=== PATIENT | female | born 1960 | race Caucasian/White ===

== ENCOUNTER 2016-10-04 14:57 | Emergency (ER) | payer BC, OTHER, SELFPAY ==
--- NOTE | 2016-10-04 15:07 | EDM.PDOC ---
ED HPI Skin/Rash - General Chief Complaint: Skin Complaint Stated Complaint: PT WOULD LIKE TO GET CHECK Time Seen by Provider: 10/04/16 15:07 Source: Reports: Patient, Provider History Limitations: Reports: No limitations - History of Present Illness INITIAL COMMENTS - FREE TEXT/NARRATIVE: HISTORY AND PHYSICAL: [55-year-old female presenting with right breast pain and axilla pain.] History of Present Illness: [The patient had breast cancer she underwent mastectomy on the right lymph node resection and then had an infection. 10 days ago patient had second surgical seizure on right breast re\re with resection. SALLY drain has placed at that time. She did report no drainage X 3 and no in the ryan LH I will days. pain has increased. Call was received from Ana Sexton MANAGER OF MEDICAL regarding patient's condition. Patient received her surgery at [facility]. Her surgeon is not in today so an associate had recommended that she have a CT scan & pull the drain. ] Original surgery was September 06 [place], [place] and second surgery was September 24, 2016 in [place], [place] Review of Systems: As per history of present illness and below otherwise all systems reviewed and negative. Past medical history: As per history of present illness and as reviewed below otherwise noncontributory. Surgical history: As per history of present illness and as reviewed below otherwise noncontributory. Social history: No reported history of drug or alcohol abuse. Family history: As per history of present illness and as reviewed below otherwise noncontributory. Physical exam: Alert female who is anxious. Answering questions appropriately. HEENT: Atraumatic, normocehpalic, pupils reactive, negative for conjunctival pallor or scleral icterus, mucous membranes moist, throat clear, neck supple, nontender, trachea midline. Lungs: Clear to auscultation, breath sounds equal bilaterally, chest non tender. Heart: S1S2, regular, negative for clicks, rubs, or JVD. Right breast is surgically absent. Sutures are in place. Significant edema noted to the right axilla. Exquisite tenderness is noted with palpation. Mild heat radiating to the axilla. Abdomen: Soft, nondistended, nontender. Negative for masses or hepatossplenmegaly. Negative for costovertebral tenderness. Pelvis: Stable nontender. Genitourinary: Deferred. Rectal: Deferred Extremities: Atraumatic, negative for cords or calf pain. Neurovascular unremarkable. Neuro: Awake, alert, oriented. Cranial nerves II through XII unremarkable. Cerebellum unremarkable. Motor and sensory unremarkable throughout. Exam nonfocal. Discussion with Dr. Hendrix Plastic Surgeon in [facility] . Recommendation from Dr. Hendrix was in agreement for clindamycin 2 mg IV. Patient could be discharged with oral antibiotics of clindamycin and Keflex. Should worsening of her symptoms occur she will need to return for further antibiotic IV therapy. Keep her appointment with her surgeon Dr. Bales in 2 days as scheduled. Clinic phone number [phone]. freight caller number for Dr. Hendrix [phone]- [phone]. Diagnostics: [CBC CMP CT chest with contrast] Therapeutics: [Tylenol, toradal clindamycin IV] Impression: [Cellulitis] Plan: [Home 2 need to consume fluids Tylenol for discomfort Clindamycin/and Keflex oral antibiotics] Definitive disposition and diagnosis as appropriate pending reevaluation and review of above. Timing: Reports: worse Location, Skin: Reports: chest Quality: Reports: Ache Severity: moderate Known Identified Source: yes Place of Occurrence: home - Related Data Allergies Allergy/AdvReac Type Severity Reaction Status Date / Time codeine Allergy Vomiting Verified 10/04/16 15:10 Home Meds: Ambulatory Orders Medication Instructions Recorded Confirmed Aspirin [[place] Aspirin] 81 mg PO DAILY 05/03/15 05/05/15 Canagliflozin [Invokana] 1 tab PO DAILY 05/03/15 05/05/15 Cranberry Conc/C/Bacill Coag 1 tab PO DAILY 05/03/15 05/05/15 [Cranberry Tablet] Corina 1 tab PO DAILY 05/03/15 05/05/15 Iron,Carbonyl/Vit C/Vit B12/Fa 1 tab PO DAILY 05/03/15 05/05/15 [Iron 100 Plus Tablet] Levothyroxine Sodium [Synthroid] 125 mcg PO DAILY 05/03/15 05/05/15 Multivits,Ca,Minerals/Iron/FA 1 tab PO ACBREAKFAST 05/03/15 05/05/15 [Women's Daily Formula Caplet] Mv-Mn/FA/Vit K/Lycop/Lut/Zeaxa 1 tab PO DAILY 05/03/15 05/05/15 [Ocuvite Eye + Multi Tablet] [place]-3/DHA/Epa/Fish Oil [[place]-3 1,000 mg PO DAILY 05/03/15 05/05/15 Fish Oil Softgel] SitaGLIPtin [Januvia] 1 tab PO DAILY 05/03/15 05/05/15 Terbinafine HCl 250 mg PO DAILY 05/03/15 05/05/15 Vitamin B Complex [B Complex] 1 tab PO DAILY 05/03/15 05/05/15 atorvaSTATin Calcium [Atorvastatin 40 mg PO DAILY 05/03/15 05/05/15 Calcium] Ascorbic Acid/Collagen Hydr 1 tab PO DAILY 05/05/15 05/05/15 [Collagen Plus Vit C] Canagliflozin [Invokana] 100 mg PO DAILY 06/12/15 06/14/15 Levothyroxine Sodium [Synthroid] 125 mcg PO DAILY 06/12/15 06/14/15 [place]-3 Fatty Acids [[place]-3] 1,000 mg PO DAILY 06/12/15 06/14/15 SitaGLIPtin [Januvia] 100 mg PO DAILY 06/12/15 06/14/15 Terbinafine HCl [Terbinafine] 250 mg PO DAILY 06/12/15 06/14/15 atorvaSTATin Calcium [Atorvastatin 40 mg PO DAILY 06/12/15 06/14/15 Calcium] Cephalexin [Keflex] 500 mg PO Q6HR #28 cap 10/04/16 Clindamycin HCl [Cleocin HCl] 300 mg PO Q8HR #21 capsule 10/04/16 Past Medical History Other HEENT History: Some diminished hearing bilaterally Other Cardiovascular History: states had hx of mumur as a child Other Gastrointestinal History: occasional heartburn Other Genitourinary History: hx: kidney stones in past...none for years always passed them Other OB/BYN History: Possible history uterine fibroid Other Musculoskeletal History: Arthritis to hands Other Endocrine/Metabolic History: Hypothyroidism Other Hematologic History: Blood transfusion at time of treatment with Dr. Giron for uterine bleeding (unsure of surgery performed) Oncologic (Cancer) History: Reports: Breast Other Oncologic History: Area excised 20 yrs ago below Right eye Other Dermatologic History: Excision of Cancer Below Right eye 20 yrs ago - Past Surgical History Other Female Surgeries/Procedures: hx hysteroscopy with polypectomy Oncologic Surgical History: Reports: Biopsy of breast, Lumpectomy Social & Family History - Tobacco Use Smoking Status *Q: Never Smoker - Recreational Drug Use Recreational Drug Use: No Drug Use in Last 12 Months: No ED ROS GENERAL - Review of Systems Review Of Systems: ROS reveals no pertinent complaints other than HPI. ED EXAM, SKIN/RASH Exam: See Below (See dictation) Course - Vital Signs Last Recorded V/S: Last Vital Signs Temp 37.8 C 10/04/16 15:11 Pulse 88 10/04/16 15:11 Resp 18 10/04/16 15:11 BP 129/61 10/04/16 15:11 Pulse Ox 94 L 10/04/16 15:11 - Orders/Labs/Meds Orders: Active Orders 24 hr Category Date Time Status Chest w Cont [CT] Stat Exams 10/04/16 15:15 Taken CULTURE BLOOD [BC] Stat Lab 10/04/16 18:47 Ordered CULTURE BLOOD [BC] Stat Lab 10/04/16 18:47 Ordered Sodium Chloride 0.9% [Saline Flush] Med 10/04/16 15:25 Active 10 ml FLUSH ASDIRECTED PRN Sodium Chloride 0.9% [Saline Flush] Med 10/04/16 15:25 Active 2.5 ml FLUSH ASDIRECTED PRN Blood Culture x2 Reflex Set [OM.PC] Stat Oth 10/04/16 18:47 Ordered Saline Lock Insert [OM.PC] Stat Oth 10/04/16 15:25 Ordered Medication Orders Sodium Chloride (Saline Flush) 10 ml FLUSH ASDIRECTED PRN PRN Reason: Keep Vein Open Last Admin: 10/04/16 17:16 Dose: 10 ml Sodium Chloride (Saline Flush) 2.5 ml FLUSH ASDIRECTED PRN PRN Reason: Keep Vein Open Last Admin: 10/04/16 17:16 Dose: 2.5 ml Labs: Laboratory Tests 10/04/16 10/04/16 Range/Units 15:40 15:40 WBC 15.67 H (4.0-11.0) K/uL RBC 4.74 (4.30-5.90) M/uL Hgb 12.6 (12.0-16.0) g/dL Hct 39.9 (36.0-46.0) % MCV 84.2 (80.0-98.0) fL MCH 26.6 L (27.0-32.0) pg MCHC 31.6 (31.0-37.0) g/dL RDW Std Deviation 43.0 (28.0-62.0) fl RDW Coeff of César 14 (11.0-15.0) % Plt Count 319 (150-400) K/uL MPV 9.30 (7.40-12.00) fL Neut % (Auto) 89.2 H (48.0-80.0) % Lymph % (Auto) 5.3 L (16.0-40.0) % Levy % (Auto) 4.9 (0.0-15.0) % Eos % (Auto) 0.5 (0.0-7.0) % Baso % (Auto) 0.1 (0.0-1.5) % Neut # 14.0 H (1.4-5.7) K/uL Lymph # 0.8 (0.6-2.4) K/uL Levy # 0.8 (0.0-0.8) K/uL Eos # 0.1 (0.0-0.7) K/uL Baso # 0.0 (0.0-0.1) K/uL Nucleated RBC % 0.0 /100WBC Nucleated RBCs # 0 K/uL Sodium 134 L (136-146) mmol/L Potassium 3.8 (3.5-5.1) mmol/L Chloride 98 (98-110) mmol/L Carbon Dioxide 26 (21-31) mmol/L BUN 18 (6.0-23.0) mg/dL Creatinine 0.9 (0.6-1.5) mg/dL Est Cr Clr Drug Dosing 57.05 mL/min Estimated GFR (MDRD) > 60.0 ml/min Glucose 152 H (60-110) mg/dL Calcium 8.8 (8.8-10.8) mg/dL Total Bilirubin 0.7 (0.1-1.5) mg/dL AST 14 (5-40) IU/L ALT 17 (8-54) IU/L Alkaline Phosphatase 76 (40-150) Total Protein 7.0 (6.0-8.0) g/dL Albumin 3.3 L (3.5-5.0) g/dL Globulin 3.7 H (2.0-3.5) g/dL Albumin/Globulin Ratio 0.9 L (1.3-2.8) Meds: Medications Generic Name Dose Route Start Last Admin Trade Name Estevanq PRN Reason Stop Dose Admin Sodium Chloride 10 ml 10/04/16 15:25 10/04/16 17:16 Saline Flush FLUSH 10 ml ASDIRECTED PRN Administration Keep Vein Open Sodium Chloride 2.5 ml 10/04/16 15:25 10/04/16 17:16 Saline Flush FLUSH 2.5 ml ASDIRECTED PRN Administration Keep Vein Open Discontinued Medications Generic Name Dose Route Start Last Admin Trade Name Javier PRN Reason Stop Dose Admin Acetaminophen 650 mg 10/04/16 18:07 10/04/16 18:15 Tylenol PO 10/04/16 18:08 650 mg NOW ONE Administration Clindamycin Phosphate 300 mg/ 52 mls @ 100 mls/hr 10/04/16 18:48 Sodium Chloride IV 10/04/16 19:19 ONETIME ONE Iopamidol 75 ml 10/04/16 18:03 10/04/16 18:03 Isovue-370 (76%) IVPUSH 10/04/16 18:04 75 ml ONETIME STA Administration Ketorolac Tromethamine 30 mg 10/04/16 18:05 10/04/16 18:17 Toradol IVPUSH 10/04/16 18:06 30 mg ONETIME ONE Administration Ondansetron HCl 4 mg 10/04/16 18:06 10/04/16 18:15 Zofran IVPUSH 10/04/16 18:07 4 mg ONETIME ONE Administration Departure - Departure Time of Disposition: 19:45 Disposition: Home, Self-Care 01 Condition: good Clinical Impression: Cellulitis Qualifiers: Site of cellulitis: trunk Site of cellulitis of trunk: chest wall Qualified Code(s): L03.313 - Cellulitis of chest wall Prescriptions: Cephalexin [Keflex] 500 mg PO Q6HR #28 cap Clindamycin HCl [Cleocin HCl] 300 mg PO Q8HR #21 capsule Forms: ED Department Discharge Additional Instructions: The following information is given to patients seen in the emergency department who are being discharged to home. This information is to outline your options for follow-up care. We provide all patients seen in our emergency department with a follow-up referral. The need for follow-up, as well as the timing and circumstances, are variable depending upon the specifics of your emergency department visit. If you don't have a primary care physician on staff, we will provide you with a referral. We always advise you to contact your personal physician following an emergency department visit to inform them of the circumstance of the visit and for follow-up with them and/or the need for any referrals to a consulting specialist. The emergency department will also refer you to a specialist when appropriate. This referral assures that you have the opportunity for followup care with a specialist. All of these measure are taken in an effort to provide you with optimal care, which includes your followup. Under all circumstances we always encourage you to contact your private physician who remains a resource for coordinating your care. When calling for followup care, please make the office aware that this follow-up is from your recent emergency room visit. If for any reason you are refused follow-up, please contact the [facility] emergency department at and asked to speak to the emergency department charge nurse. Soft tissue infection is what appears to be your difficulty Tylenol for discomfort Discussion with your Lasix surgeon in [place], [place] revealed that you will be placed on clindamycin and oral antibiotics and Keflex oral antibiotic Keep your appointment on Friday, 2 days from now, with your plastic surgeon Dr. Bales. Should your symptoms worsen please return for reevaluation possibly more IV antibiotics - My Orders Last 24 Hours: My Active Orders 10/04/16 15:15 Chest w Cont [CT] Stat 10/04/16 15:25 Sodium Chloride 0.9% [Saline Flush] 10 ml FLUSH ASDIRECTED PRN Sodium Chloride 0.9% [Saline Flush] 2.5 ml FLUSH ASDIRECTED PRN Saline Lock Insert [OM.PC] Stat 10/04/16 18:47 CULTURE BLOOD [BC] Stat CULTURE BLOOD [BC] Stat Blood Culture x2 Reflex Set [OM.PC] Stat - Assessment/Plan Last 24 Hours: My Active Orders 10/04/16 15:15 Chest w Cont [CT] Stat 10/04/16 15:25 Sodium Chloride 0.9% [Saline Flush] 10 ml FLUSH ASDIRECTED PRN Sodium Chloride 0.9% [Saline Flush] 2.5 ml FLUSH ASDIRECTED PRN Saline Lock Insert [OM.PC] Stat 10/04/16 18:47 CULTURE BLOOD [BC] Stat CULTURE BLOOD [BC] Stat Blood Culture x2 Reflex Set [OM.PC] Stat
[2016-10-04] MEDS ORDERED: Sodium Chloride 0.9% 2.5 ML Syringe FLUSH PRN (15:25)
[2016-10-04] MEDS ORDERED: Sodium Chloride 0.9% 10 ML Syringe FLUSH PRN (15:25)
[2016-10-04 16:41] LABS: CHLORIDE,CL 98 mmol/L (98-110); SODIUM,NA 134 mmol/L (136-146)
[2016-10-04] MEDS ORDERED: Iopamidol 755 Mg/ML 100 ML Bottle IVPUSH STA (18:03)
[2016-10-04] MEDS ORDERED: Ketorolac 30 MG/ML SDV IVPUSH ONE (18:05)
[2016-10-04] MEDS ORDERED: Ondansetron 4 MG/2 ML SDV IVPUSH ONE (18:06)
[2016-10-04] MEDS ORDERED: Acetaminophen 325 MG Tab PO ONE (18:07)
[2016-10-04] MEDS ORDERED: Cephalexin 500 MG Cap PO ONE (19:50)
[2016-10-04] MEDS ORDERED: Clindamycin Phosphate in D5W 300 MG in Premix Bag 1 BAG IV STA ×2 (19:57)
[2016-10-04 20:21] VITALS: BP 115/53
--- NOTE | 2016-10-07 12:41 | CT ---
EXAM DATE: 10/04/16 PATIENT'S AGE: 55 Patient: ESA CHAPIN Facility: [place], [place] Site . Site : 1960 Study: CT Chest W CONT [id number]/[id number] 5:50:21 PM Ordering Physician: Doctor Morley Final Report: INDICATION: Right breast pain and vomiting. Status post right mastectomy 10 days prior with a 2nd surgery for infection. TECHNIQUE: CT chest was acquired with IV contrast. 75 cc Isovue 370 COMPARISON: 09/08/2015 FINDINGS: Cardiovascular structures: Heart size is normal. Thoracic aorta and main pulmonary artery are normal in caliber. Mediastinum and mariela: Diffusely enlarged thyroid with no diffuse or focal nodules. Lungs: Clear. Pleura and pericardium: No effusions. Chest wall and axilla: The patient is status post right mastectomy. Percutaneous surgical drain identified in a sub right pectoralis location. Postoperative soft tissue changes are noted but no definitive walled-off collections are identified. Punctate focus of air identified. Targeted ultrasound may be helpful to better evaluate if clinically warranted. Bones: No significant findings. Upper abdomen: Unremarkable. IMPRESSION: Patient is status post right mastectomy. Percutaneous surgical drain identified in the sub right pectoralis location. Postoperative surgical changes are noted in the region of the surgical bed. No definitive walled-off collections. Targeted ultrasound may be helpful to better evaluate if clinically warranted. Diffusely enlarged thyroid gland with no focal nodules. Dictated by Ron Plummer MD @ 10/04/2016 6:36:38 PM Dictated by: Ron Plummer MD @ 10/04/2016 18:37:02 (Electronic Signature) Report Signed by Proxy and Original Signed Document filed in the Medical Record. [facility]
== END 2016-10-04 20:40 | disposition home or self-care (01) ==
LOC: MW.ED 14:57
DX: L03.313 Cellulitis of chest wall (principal); Z88.5 Allergy status to narcotic agent; Z79.82 Long term (current) use of aspirin; Z79.899 Other long term (current) drug therapy; Z90.710 Acquired absence of both cervix and uterus; Z90.89 Acquired absence of other organs; Z98.890 Other specified postprocedural states
CPT/HCPCS: 36415; 71260; 80053; 85025; 96365; 96375; 99284; A9270; J1885; J2405; Q9967

== ENCOUNTER 2020-04-12 09:57 | Inpatient (IN) | payer OTHER ==
--- NOTE | 2020-04-12 10:16 | EDM.PDOC ---
ED HPI GENERAL MEDICAL PROBLEM - General Chief Complaint: Gastrointestinal Problem Stated Complaint: nausea vomiting Time Seen by Provider: 04/12/20 10:13 Source of Information: Reports: Patient History Limitations: Reports: No Limitations - History of Present Illness INITIAL COMMENTS - FREE TEXT/NARRATIVE: HISTORY AND PHYSICAL: History of present illness: Patient is a 59-year-old female who presents to the ED today with concern of nausea with occasional vomiting, generalized body aches, headache, and fatigue over the past 9 days. Patient states she was tested for coronavirus last Friday in the clinic and her results were negative. Patient states over the course of the week she is continued to feel tired and rundown. Patient states that she is feeling constantly nauseous and is having a difficult time with eating solid foods but states she has been trying to push fluids. Patient has a history of atrial fibrillation, type 2 diabetes, hypothyroid, and breast cancer but states she has been in remission for several years. Patient denies fever, chills, chest pain, shortness of breath, or cough. Denies neck stiff ness, change in vision, syncope, or near syncope. Denies abdominal pain, diarrhea, constipation, or dysuria. Has not noted any blood in urine or stool. Review of systems: As per history of present illness and below otherwise all systems reviewed and negative. Past medical history: As per history of present illness and as reviewed below otherwise noncontributory. Surgical history: As per history of present illness and as reviewed below otherwise noncontributory. Social history: See social history for further information Family history: As per history of present illness and as reviewed below otherwise noncontributory. Physical exam: General: Patient is alert, oriented, and in no acute distress. Patient sitting comfortably on exam table. HEENT: Atraumatic, normocephalic, pupils equal and reactive bilaterally, negative for conjunctival pallor or scleral icterus, mucous membranes moist, TMs normal bilaterally, throat clear, neck supple, nontender, trachea midline. No drooling or trismus noted. No meningeal signs. No hot potato voice noted. Lungs: Patient speaking clearly without breathlessness, no wheezing or stridor, no accessory muscle use or respiratory distress. Auscultation deferred due to current COV-ID 19 outbreak. Heart: Auscultation deferred due to current COV-ID 19 outbreak. Abdomen: Soft, nondistended, nontender. Negative for masses or hepatosplenomegaly. Negative for costovertebral tenderness. Pelvis: Stable nontender. Genitourinary: Deferred. Rectal: Deferred. Skin: Intact, warm, dry. No lesions or rashes noted. Extremities: Atraumatic, negative for cords or calf pain. Neurovascular unremarkable. Neuro: Awake, alert, oriented. Cranial nerves II through XII unremarkable. Cerebellum unremarkable. Motor and sensory unremarkable throughout. Exam nonfocal. Notes: Upon arrival to the ED, patient's oxygenation saturations were 85%. 2 L nasal cannula were placed on patient and satting 95%. Patient has been breathing comfortably without breathlessness, wheezing, or stridor no use of a sensory muscles or indication of respiratory distress. Incendental findings of imaging discussed with patient and importance to have this followed up with after hospital stay. Called and spoke to Dr. Saunders, hospitalist monogram technician, and will admit to observation telemetry. Voices understanding and is agreeable to plan of care. Denies any further questions or concerns at this time. Diagnostics: EKG, CBC, CMP, UA, chest x-ray, troponin, lipase, COVID-19, ang CT, abd/pelvic CT Therapeutics: NS, zofran, oxygen, Rocephin, Azithromycin Impression: Hypoxia r/o pneumonia Transaminitis Hematuria Plan: Admit to observation to Dr. Saunders on telemetry Definitive disposition and diagnosis as appropriate pending reevaluation and review of above. Abdominal Pain Pain Score (Numeric/FACES): 6 - Related Data Allergies Allergy/AdvReac Type Severity Reaction Status Date / Time codeine Allergy Vomiting Verified 04/12/20 10:34 Home Meds: Home Meds atorvaSTATin Calcium [Atorvastatin Calcium] 40 mg PO DAILY 05/03/15 [History] Empagliflozin [Jardiance] 25 mg PO BEDTIME 04/12/20 [History] Ondansetron [Zofran] 4 mg PO Q4H 04/12/20 [History] Thyroid,Pork [Powderly Thyroid] 90 mg PO ACBREAKFAST 04/12/20 [History] Thyroid,Pork [[employer]ER Thyroid] 30 mg PO ACBREAKFAST 04/12/20 [History] Past Medical History Other HEENT History: Some diminished hearing bilaterally Other Cardiovascular History: states had hx of mumur as a child Other Gastrointestinal History: occasional heartburn Other Genitourinary History: hx: kidney stones in past...none for years always passed them Other HOMEWORKER History: Possible history uterine fibroid Other Musculoskeletal History: Arthritis to hands Other Endocrine/Metabolic History: Hypothyroidism Other Hematologic History: Blood transfusion at time of treatment with Dr. Giron for uterine bleeding (unsure of surgery performed) Oncologic (Cancer) History: Reports: Breast Other Oncologic History: Area excised 20 yrs ago below Right eye Other Dermatologic History: Excision of Cancer Below Right eye 20 yrs ago - Past Surgical History Female Surgical History: Reports: Other (See Below) Oncologic Surgical History: Reports: Biopsy of Breast, Lumpectomy Social & Family History - Family History Family Medical History: Noncontributory ED ROS GENERAL - Review of Systems Review Of Systems: Comprehensive ROS is negative, except as noted in HPI. ED EXAM, GENERAL - Physical Exam Exam: See Below (see dictation) Course - Vital Signs Last Recorded V/S: Last Vital Signs Temp 97.0 F 04/12/20 10:34 Pulse 73 04/12/20 10:34 Resp 20 04/12/20 10:34 BP 127/60 04/12/20 10:34 Pulse Ox 85 L 04/12/20 10:34 - Orders/Labs/Meds Orders: Active Orders 24 hr Category Date Time Status EKG Documentation Completion [RC] STAT Care 04/12/20 10:39 Active Azithromycin [Zithromax] 500 mg Med 04/12/20 14:00 Ordered Sodium Chloride 0.9% [Normal Saline (AdvBag)] 250 ml IV ONETIME Sodium Chloride 0.9% [Saline Flush] Med 04/12/20 10:38 Active 10 ml FLUSH ASDIRECTED PRN Sodium Chloride 0.9% [Saline Flush] Med 04/12/20 10:38 Active 2.5 ml FLUSH ASDIRECTED PRN cefTRIAXone [Rocephin in Dextrose,Iso-Osm 1 GM/50 ML] 1 Med 04/12/20 13:40 Ordered gm Premix Bag 1 bag IV ONETIME Saline Lock Insert [OM.PC] Stat Oth 04/12/20 10:38 Ordered Medication Orders Ceftriaxone Sodium/Dextrose 1 (gm/ Premix) 50 mls @ 100 mls/hr IV ONETIME ONE Stop: 04/12/20 14:09 Azithromycin 500 mg/ Sodium (Chloride) 250 mls @ 250 mls/hr IV ONETIME MARV Sodium Chloride (Saline Flush) 10 ml FLUSH ASDIRECTED PRN PRN Reason: Keep Vein Open Last Admin: 04/12/20 10:55 Dose: 10 ml Documented by: NIKOLE Sodium Chloride (Saline Flush) 2.5 ml FLUSH ASDIRECTED PRN PRN Reason: Keep Vein Open Last Admin: 04/12/20 10:55 Dose: 2.5 ml Documented by: NIKOLE Labs: Laboratory Tests 04/12/20 04/12/20 04/12/20 Range/Units 10:30 10:59 10:59 WBC 6.91 (4.0-11.0) K/uL RBC 5.08 (4.30-5.90) M/uL Hgb 14.5 (12.0-16.0) g/dL Hct 44.0 (36.0-46.0) % MCV 86.6 (80.0-98.0) fL MCH 28.5 (27.0-32.0) pg MCHC 33.0 (31.0-37.0) g/dL RDW Std Deviation 44.1 (28.0-62.0) fl RDW Coeff of César 14 (11.0-15.0) % Plt Count 136 L (150-400) K/uL MPV 9.80 (7.40-12.00) fL Neut % (Auto) 67.3 (48.0-80.0) % Lymph % (Auto) 19.0 (16.0-40.0) % Dent % (Auto) 13.6 (0.0-15.0) % Eos % (Auto) 0.0 (0.0-7.0) % Baso % (Auto) 0.1 (0.0-1.5) % Neut # (Auto) 4.7 (1.4-5.7) K/uL Lymph # (Auto) 1.3 (0.6-2.4) K/uL Dent # (Auto) 0.9 H (0.0-0.8) K/uL Eos # (Auto) 0.0 (0.0-0.7) K/uL Baso # (Auto) 0.0 (0.0-0.1) K/uL Nucleated RBC % 0.0 /100WBC Nucleated RBCs # 0 K/uL Sodium 133 L (136-145) mmol/L Potassium 3.5 (3.5-5.1) mmol/L Chloride 97 L (98-107) mmol/L Carbon Dioxide 25.6 (21.0-32.0) mmol/L BUN 19 H (7.0-18.0) mg/dL Creatinine 1.0 (0.6-1.0) mg/dL Est Cr Clr Drug Dosing 48.87 mL/min Estimated GFR (MDRD) 56.4 ml/min Glucose 130 H (74-106) mg/dL Calcium 8.5 (8.5-10.1) mg/dL Total Bilirubin 0.7 (0.2-1.0) mg/dL AST 62 H (15-37) IU/L ALT 67 H (14-63) IU/L Alkaline Phosphatase 71 (46-116) U/L Troponin I < 0.050 (0.000-0.056) ng/mL Total Protein 7.1 (6.4-8.2) g/dL Albumin 3.1 L (3.4-5.0) g/dL Globulin 4.0 (2.6-4.0) g/dL Albumin/Globulin Ratio 0.8 L (0.9-1.6) Lipase 94 (73-393) U/L Urine Color YELLOW Urine Appearance CLEAR Urine pH 6.5 (5.0-8.0) Ur Specific [employer] 1.015 (1.001-1.035) Urine Protein 30 H (NEGATIVE) mg/dL Urine Glucose (UA) >=1000 (NEGATIVE) mg/dL Urine Ketones 15 H (NEGATIVE) mg/dL Urine Occult Blood MODERATE H (NEGATIVE) Urine Nitrite NEGATIVE (NEGATIVE) Urine Bilirubin SMALL H (NEGATIVE) Urine Ictotest NEGATIVE Urine Urobilinogen 1.0 (<2.0) EU/dL Ur Leukocyte Esterase NEGATIVE (NEGATIVE) Urine RBC 5-10 (0-2/HPF) Urine WBC 0-2 (0-5/HPF) Ur Epithelial Cells FEW (NONE-FEW) Urine Bacteria RARE (NEGATIVE) SARS-CoV-2 RNA (ESTELITA) (NEGATIVE) 04/12/20 Range/Units 11:05 WBC (4.0-11.0) K/uL RBC (4.30-5.90) M/uL Hgb (12.0-16.0) g/dL Hct (36.0-46.0) % MCV (80.0-98.0) fL MCH (27.0-32.0) pg MCHC (31.0-37.0) g/dL RDW Std Deviation (28.0-62.0) fl RDW Coeff of C[employer]ar (11.0-15.0) % Plt Count (150-400) K/uL MPV (7.40-12.00) fL Neut % (Auto) (48.0-80.0) % Lymph % (Auto) (16.0-40.0) % Dent % (Auto) (0.0-15.0) % Eos % (Auto) (0.0-7.0) % Baso % (Auto) (0.0-1.5) % Neut # (Auto) (1.4-5.7) K/uL Lymph # (Auto) (0.6-2.4) K/uL Dent # (Auto) (0.0-0.8) K/uL Eos # (Auto) (0.0-0.7) K/uL Baso # (Auto) (0.0-0.1) K/uL Nucleated RBC % /100WBC Nucleated RBCs # K/uL Sodium (136-145) mmol/L Potassium (3.5-5.1) mmol/L Chloride (98-107) mmol/L Carbon Dioxide (21.0-32.0) mmol/L BUN (7.0-18.0) mg/dL Creatinine (0.6-1.0) mg/dL Est Cr Clr Drug Dosing mL/min Estimated GFR (MDRD) ml/min Glucose (74-106) mg/dL Calcium (8.5-10.1) mg/dL Total Bilirubin (0.2-1.0) mg/dL AST (15-37) IU/L ALT (14-63) IU/L Alkaline Phosphatase (46-116) U/L Troponin I (0.000-0.056) ng/mL Total Protein (6.4-8.2) g/dL Albumin (3.4-5.0) g/dL Globulin (2.6-4.0) g/dL Albumin/Globulin Ratio (0.9-1.6) Lipase (73-393) U/L Urine Color Urine Appearance Urine pH (5.0-8.0) Ur Specific [employer] (1.001-1.035) Urine Protein (NEGATIVE) mg/dL Urine Glucose (UA) (NEGATIVE) mg/dL Urine Ketones (NEGATIVE) mg/dL Urine Occult Blood (NEGATIVE) Urine Nitrite (NEGATIVE) Urine Bilirubin (NEGATIVE) Urine Ictotest Urine Urobilinogen (<2.0) EU/dL Ur Leukocyte Esterase (NEGATIVE) Urine RBC (0-2/HPF) Urine WBC (0-5/HPF) Ur Epithelial Cells (NONE-FEW) Urine Bacteria (NEGATIVE) SARS-CoV-2 RNA (ESTELITA) NEGATIVE (NEGATIVE) Meds: Medications Generic Name Dose Route Start Last Admin Trade Name Javier PRN Reason Stop Dose Admin Ceftriaxone Sodium/Dextrose 1 50 mls @ 100 mls/hr 04/12/20 13:40 gm/ Premix IV 04/12/20 14:09 ONETIME ONE Azithromycin 500 mg/ Sodium 250 mls @ 250 mls/hr 04/12/20 14:00 Chloride IV ONETIME MARV Sodium Chloride 10 ml 04/12/20 10:38 04/12/20 10:55 Saline Flush FLUSH 10 ml ASDIRECTED PRN Administration Keep Vein Open Sodium Chloride 2.5 ml 04/12/20 10:38 04/12/20 10:55 Saline Flush FLUSH 2.5 ml ASDIRECTED PRN Administration Keep Vein Open Discontinued Medications Generic Name Dose Route Start Last Admin Trade Name Javier PRN Reason Stop Dose Admin Sodium Chloride 1,000 mls @ 999 mls/hr 04/12/20 10:46 04/12/20 10:55 Normal Saline IV 04/12/20 11:46 999 mls/hr STAT ONE Administration Ondansetron HCl 4 mg 04/12/20 10:52 04/12/20 10:57 Zofran IVPUSH 04/12/20 10:53 4 mg ONETIME ONE Administration Ondansetron HCl 4 mg 04/12/20 13:46 Zofran IVPUSH 04/12/20 13:47 ONETIME ONE Departure - Departure Time of Disposition: 13:54 Disposition: Refer to Observation Clinical Impression: Hypoxia, Transaminitis Hematuria Qualifiers: Hematuria type: unspecified type Qualified Code(s): R31.9 - Hematuria, unspecified - Discharge Information Referrals: Janine Cason [employer] MIXER [Primary Care Provider] - Forms: ED Department Discharge Sepsis Event Note (ED) - Focused Exam Vital Signs: Vital Signs Temp Pulse Resp BP Pulse Ox 04/12/20 10:34 97.0 F 73 20 127/60 85 L - My Orders Last 24 Hours: My Active Orders 04/12/20 10:38 Sodium Chloride 0.9% [Saline Flush] 10 ml FLUSH ASDIRECTED PRN Sodium Chloride 0.9% [Saline Flush] 2.5 ml FLUSH ASDIRECTED PRN Saline Lock Insert [OM.PC] Stat 04/12/20 10:39 EKG Documentation Completion [RC] STAT 04/12/20 13:40 cefTRIAXone [Rocephin in Dextrose,Iso-Osm 1 GM/50 ML] 1 gm Premix Bag 1 bag IV ONETIME 04/12/20 14:00 Azithromycin [Zithromax] 500 mg Sodium Chloride 0.9% [Normal Saline (AdvBag)] 250 ml IV ONETIME - Assessment/Plan Last 24 Hours: My Active Orders 04/12/20 10:38 Sodium Chloride 0.9% [Saline Flush] 10 ml FLUSH ASDIRECTED PRN Sodium Chloride 0.9% [Saline Flush] 2.5 ml FLUSH ASDIRECTED PRN Saline Lock Insert [OM.PC] Stat 04/12/20 10:39 EKG Documentation Completion [RC] STAT 04/12/20 13:40 cefTRIAXone [Rocephin in Dextrose,Iso-Osm 1 GM/50 ML] 1 gm Premix Bag 1 bag IV ONETIME 04/12/20 14:00 Azithromycin [Zithromax] 500 mg Sodium Chloride 0.9% [Normal Saline (AdvBag)] 250 ml IV ONETIME
[2020-04-12] MEDS ORDERED: Sodium Chloride 0.9% 2.5 ML Syringe FLUSH PRN ×2 (10:38→15:12)
[2020-04-12] MEDS ORDERED: Sodium Chloride 0.9% 10 ML Syringe FLUSH PRN (10:38)
[2020-04-12] MEDS ORDERED: Sodium Chloride 0.9% 1,000 ML IV ONE (10:46)
[2020-04-12] MEDS ORDERED: Ondansetron 4 MG/2 ML SDV IVPUSH ONE ×2 (10:52→13:46)
[2020-04-12 11:55] LABS: BLOOD UREA NITROGEN,BUN 19 mg/dL (7.0-18.0); CARBON DIOXIDE,CO2 25.6 mmol/L (21.0-32.0); CHLORIDE,CL 97 mmol/L (98-107); GLUCOSE RANDOM 130 mg/dL (74-106); LIPASE 94 U/L (73-393); POTASSIUM,K 3.5 mmol/L (3.5-5.1); SODIUM,NA 133 mmol/L (136-145)
--- NOTE | 2020-04-12 12:12 | CR ---
Chest: AP view of the chest is obtained. Comparison: No prior chest imaging is available. Findings: Patchy area of increased density seen throughout the right chest. Slight atelectasis within the left mid chest. Heart size and mediastinum are within normal limits for AP technique. Bony structures are grossly intact. Surgical clips seen overlying the right lower chest. Impression: 1. Patchy areas increased density within the right chest. Findings are slightly nodular and could represent multiple nodular masses although findings could also represent viral pneumonia. Please correlate if patient is positive for Covid 19. If patient is negative for Covid, chest CT could then be considered. 2. Atelectasis within left midlung. Diagnostic code #3 This report was dictated in MDT
--- NOTE | 2020-04-12 13:29 | CT ---
CT chest Technique: Multiple axial sections through the chest were obtained. Intravenous contrast was utilized. Study performed as a pulmonary angiogram protocol. Findings: Pulmonary arteries are well-opacified. No filling defects are seen to indicate pulmonary embolism. Coronary artery calcification is noted. Aorta shows no aneurysm. Mediastinum shows no adenopathy or mass. 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 Diffuse parenchymal densities are seen within both sides of the chest. Previous right breast surgery is noted. Bone window settings were reviewed which shows scattered degenerative change within the spine. Impression: 1. Diffuse parenchymal densities on both sides of the chest. Recommend treatment as pneumonia and follow-up recommended to make sure findings resolve. Follow-up by chest x-ray can be performed. Differential also includes infectious emboli as well as viral pneumonia from false positive Covid test. 2. No findings of pulmonary embolism. 3. 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 Diagnostic code #5 This report was dictated in MDT
--- NOTE | 2020-04-12 13:35 | CT ---
CT abdomen and pelvis Technique: Multiple axial sections were obtained from above the dome of the diaphragm inferiorly through the pubic symphysis. Intravenous contrast not utilized. Reconstructed coronal and sagittal images were obtained. Comparison: Prior CT abdomen and pelvis study of 04/08/19. Findings: Patchy areas of increased density within both lung bases. Fatty infiltration is noted within the liver. Spleen appears within normal limits. Adrenal glands show no nodule. Pancreas shows no discrete abnormality. Cyst is noted within the right kidney measuring 1.9 cm. Nonobstructing calculi are seen within both kidneys. Ureters show no dilatation. No ureteral calculi are seen. Pancreas shows no discrete abnormality. Aorta shows atherosclerotic change without aneurysm. No retroperitoneal adenopathy or mesenteric abnormalities are seen. No pelvic mass or adenopathy is seen. No free fluid or inflammatory change is appreciated. Appendix is not visualized with certainty. Bone window settings were reviewed which shows scattered degenerative change within the spine. No acute osseous finding is appreciated. Impression: 1. Multiple nonobstructing calculi within both kidneys. No ureteral dilatation or ureteral stone is seen. 2. Patchy parenchymal densities within both lower lungs are partially visualized. 3. Cyst within the right kidney which is believed to be incidental. 4. Fatty infiltration within the liver and other findings believed to be incidental as noted above. 5. Nothing acute is appreciated on noncontrast CT study of the abdomen and pelvis. Diagnostic code #3 This report was dictated in MDT
[2020-04-12] MEDS ORDERED: cefTRIAXone 1 GM in Premix Bag 1 BAG IV ONE (13:40)
[2020-04-12] MEDS ORDERED: Azithromycin 500 MG in Sodium Chloride 0.9% 250 ML IV SCH (14:00)
[2020-04-12] MEDS ORDERED: Iopamidol 755 Mg/ML 100 ML Bottle IVPUSH STA (14:07)
[2020-04-12] MEDS ORDERED: diphenhydrAMINE 50 MG/ML SDV IVPUSH ONE (14:48)
[2020-04-12] MEDS ORDERED: Metoclopramide 10 MG/2 ML SDV IV ONE (14:48)
--- NOTE | 2020-04-12 15:20 | PCM.HP.2 ---
H&P History of Present Illness - General Date of Service: 04/12/20 Admit Problem/Dx: Admission Diagnosis/Problem Admission Diagnosis/Problem Hypoxia Source of Information: Patient History Limitations: Reports: No Limitations - History of Present Illness Initial Comments - Free Text/Narative: This 59 year old female with pmh of breast ca in remission, obesity, hypothyroidism, and DM Type 2 presented to the ED with complaints of SOB, fever and N/V for 9 days, she reports since last Friday she has not been feeling well. 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 She was tested last Friday and was negative, again negative today in the ED. She repots she h as generalized body aches. She denies chest pain or palpitations. No currently nausea. No abdominal pain. No diarrhea or constipation. NO urinary symptoms. In the ED she was noted to be hypoxic, sats 85% on RA on arrival. No leukocytosis, platelets 136,000. No GARTH. Mild transaminitis noted. CXR showed nodularity to R lung base, CT angio revealed bilateral densities with viral pneumonia appearance. She was given Rocephin and Azithromycin in the ED and admitted for acute respiratory failure with hypoxia. Abdominal Pain Pain Score (Numeric/FACES): 6 - Related Data Allergies/Adverse Reactions: Allergies Allergy/AdvReac Type Severity Reaction Status Date / Time codeine Allergy Vomiting Verified 04/12/20 16:03 Home Medications: Home Meds atorvaSTATin Calcium [Atorvastatin Calcium] 40 mg PO BEDTIME 05/03/15 [History] Empagliflozin [Jardiance] 25 mg PO BEDTIME 04/12/20 [History] Ondansetron [Zofran] 4 mg PO Q4H 04/12/20 [History] Thyroid,Pork [[place] Thyroid] 90 mg PO ACBREAKFAST 04/12/20 [History] Thyroid,Pork [[employer] Thyroid] 30 mg PO ACBREAKFAST 04/12/20 [History] Past Medical History Other HEENT History: Some diminished hearing bilaterally Cardiovascular History: Reports: Afib Other Cardiovascular History: states had hx of mumur as a child Respiratory History: Reports: None. Denies: COPD, SOB Other Gastrointestinal History: occasional heartburn Other Genitourinary History: hx: kidney stones in past...none for years always passed them Other OB/BYN History: Possible history uterine fibroid Other Musculoskeletal History: Arthritis to hands Endocrine/Metabolic History: Reports: Diabetes, Type II Other Endocrine/Metabolic History: Hypothyroidism Other Hematologic History: Blood transfusion at time of treatment with Dr. Giron for uterine bleeding (unsure of surgery performed) Oncologic (Cancer) History: Reports: Breast Other Oncologic History: Area excised 20 yrs ago below Right eye Other Dermatologic History: Excision of Cancer Below Right eye 20 yrs ago - Infectious Disease History Infectious Disease History: Reports: None - Past Surgical History Female Surgical History: Reports: Other (See Below) Oncologic Surgical History: Reports: Biopsy of Breast, Lumpectomy Social & Family History - Family History Family Medical History: Noncontributory - Tobacco Use Smoking Status *Q: Never Smoker - Caffeine Use Caffeine Use: Reports: Coffee - Alcohol Use Alcohol Use History: No - Recreational Drug Use Recreational Drug Use: No - Living Situation & Occupation Living situation: Reports: H&P Review of Systems - Review of Systems: Review Of Systems: See Below General: Reports: Fever, Chills, Malaise HEENT: Reports: No Symptoms. Denies: Headaches, Sore Throat, Vertigo Pulmonary: Reports: Shortness of Breath, Cough. Denies: Sputum Cardiovascular: Denies: Chest Pain, Edema, Lightheadedness Gastrointestinal: Reports: Nausea, Vomiting. Denies: Abdominal Pain, Black Stool, Constipation Genitourinary: Reports: No Symptoms. Denies: Dysuria, Frequency, Burning Skin: Reports: No Symptoms. Denies: Wound Psychiatric: Denies: No Symptoms Neurological: Reports: No Symptoms Hematologic/Lymphatic: Reports: No Symptoms Immunologic: Reports: No Symptoms Exam - Exam Exam: See Below - Vital Signs Vital Signs: Last Vital Signs Temp 97.0 F 04/12/20 10:34 Pulse 75 04/12/20 14:26 Resp 18 04/12/20 14:26 BP 116/46 L 04/12/20 14:26 Pulse Ox 94 L 04/12/20 14:26 Weight: 89.811 kg - Exam General: Alert, Oriented, Cooperative Lungs: Rhonchi (fine to LLL). No: Normal Respiratory Effort (mild dyspnea) Cardiovascular: Regular Rate, Regular Rhythm GI/Abdominal Exam: Normal Bowel Sounds, Soft, Non-Tender Extremities: Normal Inspection, Normal Range of Motion, Non-Tender, No Pedal Edema Neuro Extensive - Mental Status: Alert, Oriented x3 Neuro Extensive - Motor, Sensory, Reflexes: CN II-XII Intact Psychiatric: Alert, Normal Affect, Normal Mood - Patient Data Lab Results Last 24 hrs: Laboratory Results - last 24 hr 04/12/20 04/12/20 04/12/20 Range/Units 10:30 10:59 10:59 WBC 6.91 (4.0-11.0) K/uL RBC 5.08 (4.30-5.90) M/uL Hgb 14.5 (12.0-16.0) g/dL Hct 44.0 (36.0-46.0) % MCV 86.6 (80.0-98.0) fL MCH 28.5 (27.0-32.0) pg MCHC 33.0 (31.0-37.0) g/dL RDW Std Deviation 44.1 (28.0-62.0) fl RDW Coeff of [place] 14 (11.0-15.0) % Plt Count 136 L (150-400) K/uL MPV 9.80 (7.40-12.00) fL Neut % (Auto) 67.3 (48.0-80.0) % Lymph % (Auto) 19.0 (16.0-40.0) % [place] % (Auto) 13.6 (0.0-15.0) % Eos % (Auto) 0.0 (0.0-7.0) % Baso % (Auto) 0.1 (0.0-1.5) % Neut # (Auto) 4.7 (1.4-5.7) K/uL Lymph # (Auto) 1.3 (0.6-2.4) K/uL [place] # (Auto) 0.9 H (0.0-0.8) K/uL Eos # (Auto) 0.0 (0.0-0.7) K/uL Baso # (Auto) 0.0 (0.0-0.1) K/uL Nucleated RBC % 0.0 /100WBC Nucleated RBCs # 0 K/uL Sodium 133 L (136-145) mmol/L Potassium 3.5 (3.5-5.1) mmol/L Chloride 97 L (98-107) mmol/L Carbon Dioxide 25.6 (21.0-32.0) mmol/L BUN 19 H (7.0-18.0) mg/dL Creatinine 1.0 (0.6-1.0) mg/dL Est Cr Clr Drug Dosing 48.87 mL/min Estimated GFR (MDRD) 56.4 ml/min Glucose 130 H (74-106) mg/dL Calcium 8.5 (8.5-10.1) mg/dL Total Bilirubin 0.7 (0.2-1.0) mg/dL AST 62 H (15-37) IU/L ALT 67 H (14-63) IU/L Alkaline Phosphatase 71 (46-116) U/L Troponin I < 0.050 (0.000-0.056) ng/mL Total Protein 7.1 (6.4-8.2) g/dL Albumin 3.1 L (3.4-5.0) g/dL Globulin 4.0 (2.6-4.0) g/dL Albumin/Globulin Ratio 0.8 L (0.9-1.6) Lipase 94 (73-393) U/L Urine Color YELLOW Urine Appearance CLEAR Urine pH 6.5 (5.0-8.0) Ur Specific [place] 1.015 (1.001-1.035) Urine Protein 30 H (NEGATIVE) mg/dL Urine Glucose (UA) >=1000 (NEGATIVE) mg/dL Urine Ketones 15 H (NEGATIVE) mg/dL Urine Occult Blood MODERATE H (NEGATIVE) Urine Nitrite NEGATIVE (NEGATIVE) Urine Bilirubin SMALL H (NEGATIVE) Urine Ictotest NEGATIVE Urine Urobilinogen 1.0 (<2.0) EU/dL Ur Leukocyte Esterase NEGATIVE (NEGATIVE) Urine RBC 5-10 (0-2/HPF) Urine WBC 0-2 (0-5/HPF) Ur Epithelial Cells FEW (NONE-FEW) Urine Bacteria RARE (NEGATIVE) SARS-CoV-2 RNA (ESTELITA) (NEGATIVE) 04/12/20 Range/Units 11:05 WBC (4.0-11.0) K/uL RBC (4.30-5.90) M/uL Hgb (12.0-16.0) g/dL Hct (36.0-46.0) % MCV (80.0-98.0) fL MCH (27.0-32.0) pg MCHC (31.0-37.0) g/dL RDW Std Deviation (28.0-62.0) fl RDW Coeff of [place] (11.0-15.0) % Plt Count (150-400) K/uL MPV (7.40-12.00) fL Neut % (Auto) (48.0-80.0) % Lymph % (Auto) (16.0-40.0) % [place] % (Auto) (0.0-15.0) % Eos % (Auto) (0.0-7.0) % Baso % (Auto) (0.0-1.5) % Neut # (Auto) (1.4-5.7) K/uL Lymph # (Auto) (0.6-2.4) K/uL [place] # (Auto) (0.0-0.8) K/uL Eos # (Auto) (0.0-0.7) K/uL Baso # (Auto) (0.0-0.1) K/uL Nucleated RBC % /100WBC Nucleated RBCs # K/uL Sodium (136-145) mmol/L Potassium (3.5-5.1) mmol/L Chloride (98-107) mmol/L Carbon Dioxide (21.0-32.0) mmol/L BUN (7.0-18.0) mg/dL Creatinine (0.6-1.0) mg/dL Est Cr Clr Drug Dosing mL/min Estimated GFR (MDRD) ml/min Glucose (74-106) mg/dL Calcium (8.5-10.1) mg/dL Total Bilirubin (0.2-1.0) mg/dL AST (15-37) IU/L ALT (14-63) IU/L Alkaline Phosphatase (46-116) U/L Troponin I (0.000-0.056) ng/mL Total Protein (6.4-8.2) g/dL Albumin (3.4-5.0) g/dL Globulin (2.6-4.0) g/dL Albumin/Globulin Ratio (0.9-1.6) Lipase (73-393) U/L Urine Color Urine Appearance Urine pH (5.0-8.0) Ur Specific [place] (1.001-1.035) Urine Protein (NEGATIVE) mg/dL Urine Glucose (UA) (NEGATIVE) mg/dL Urine Ketones (NEGATIVE) mg/dL Urine Occult Blood (NEGATIVE) Urine Nitrite (NEGATIVE) Urine Bilirubin (NEGATIVE) Urine Ictotest Urine Urobilinogen (<2.0) EU/dL Ur Leukocyte Esterase (NEGATIVE) Urine RBC (0-2/HPF) Urine WBC (0-5/HPF) Ur Epithelial Cells (NONE-FEW) Urine Bacteria (NEGATIVE) SARS-CoV-2 RNA (ESTELITA) NEGATIVE (NEGATIVE) Result Diagrams: 04/12/20 10:59 04/12/20 10:59 Sepsis Event Note - Evaluation Sepsis Screening Result: No Definite Risk - Focused Exam Vital Signs: Vital Signs Temp Pulse Resp BP Pulse Ox 04/12/20 14:26 75 18 116/46 L 94 L 04/12/20 12:10 76 131/45 L 94 L 04/12/20 11:40 119/46 L 04/12/20 11:09 72 17 133/58 L 93 L 04/12/20 10:34 97.0 F 73 20 127/60 85 L - Problem List (1) Acute respiratory failure with hypoxia SNOMED Code(s): 62366527, 320128600 ICD Code: J96.01 - ACUTE RESPIRATORY FAILURE WITH HYPOXIA Status: Acute Current Visit: Yes (2) Transaminitis SNOMED Code(s): 303406923, 037088181 ICD Code: R74.0 - NONSPEC ELEV OF LEVELS OF TRANSAMNS & LACTIC ACID DEHYDRGNSE Status: Acute Current Visit: Yes (3) CAP (community acquired pneumonia) SNOMED Code(s): 059641778 ICD Code: J18.9 - PNEUMONIA, UNSPECIFIED ORGANISM Status: Acute Current Visit: Yes (4) DM type 2 (diabetes mellitus, type 2) SNOMED Code(s): 23018717 ICD Code: E11.9 - TYPE 2 DIABETES MELLITUS WITHOUT COMPLICATIONS Status: Chronic Current Visit: Yes Qualifiers: Diabetes mellitus long goods drier insulin use: without long goods drier use Diabetes mellitus complication status: without complication Qualified Code(s): E11.9 - Type 2 diabetes mellitus without complications (5) HX: breast cancer SNOMED Code(s): 742376172 ICD Code: Z85.3 - PERSONAL HISTORY OF MALIGNANT NEOPLASM OF BREAST Status: Chronic Current Visit: Yes (6) Hypothyroid SNOMED Code(s): 76578777 ICD Code: E03.9 - HYPOTHYROIDISM, UNSPECIFIED Status: Chronic Current Visit: Yes Problem List Initiated/Reviewed/Updated: Yes Orders Last 24hrs: Active Orders 24 hr Category Date Time Status Admission Status [Patient Status] [ADT] Stat ADT 04/12/20 13:54 Active Blood Glucose Check, Bedside [RC] TIDMEALS Care 04/12/20 15:14 Ordered Intake and Output [RC] QSHIFT Care 04/12/20 15:01 Active May Shower [RC] ASDIRECTED Care 04/12/20 15:01 Active Oxygen Therapy [RC] PRN Care 04/12/20 15:01 Active RT Incentive Spirometry [RC] Q1HWA Care 04/12/20 15:12 Ordered Up With Assistance [RC] ASDIRECTED Care 04/12/20 15:01 Active VTE/DVT Education [RC] PER UNIT ROUTINE Care 04/12/20 15:01 Active Vital Signs [RC] Q4H Care 04/12/20 15:01 Active BASIC METABOLIC PANEL,BMP [CHEM] AM Lab 04/13/20 05:11 Ordered CBC WITH AUTO DIFF [HEME] AM Lab 04/13/20 05:11 Ordered MAGNESIUM [CHEM] AM Lab 04/13/20 05:11 Ordered Acetaminophen [TylenoL] Med 04/12/20 15:01 Ordered 650 mg PO Q4H PRN Azithromycin [Zithromax] 500 mg Med 04/13/20 09:00 Ordered Sodium Chloride 0.9% [Normal Saline (AdvBag)] 250 ml IV DAILY Enoxaparin [Lovenox] Med 04/12/20 15:15 Ordered 40 mg SUBCUT Q24H Insulin Aspart [NovoLOG] Med 04/12/20 17:00 Ordered See Protocol SUBCUT TIDAC Ondansetron [Zofran] Med 04/12/20 15:01 Ordered 4 mg IVPUSH Q4H PRN Sodium Chloride 0.9% [Normal Saline] 1,000 ml Med 04/12/20 15:15 Ordered IV Q10H Sodium Chloride 0.9% [Saline Flush] Med 04/12/20 15:12 Ordered 2.5 ml FLUSH ASDIRECTED PRN cefTRIAXone [Rocephin in Dextrose,Iso-Osm 1 GM/50 ML] 1 Med 04/13/20 12:00 Ordered gm Premix Bag 1 bag IV Q24H RT Acapella [RESPCARE] Routine Oth 04/12/20 15:12 Ordered Saline Lock Insert [OM.PC] Routine Oth 04/12/20 15:12 Ordered Resuscitation Status Routine Resus Stat 04/12/20 15:01 Ordered Medication Orders Acetaminophen (Tylenol) 650 mg PO Q4H PRN PRN Reason: Pain (Mild 1-3)/fever Enoxaparin Sodium (Lovenox) 40 mg SUBCUT Q24H MARV Azithromycin 500 mg/ Sodium (Chloride) 250 mls @ 250 mls/hr IV DAILY MARV Ceftriaxone Sodium/Dextrose 1 (gm/ Premix) 50 mls @ 100 mls/hr IV Q24H MARV Sodium Chloride (Normal Saline) 1,000 mls @ 100 mls/hr IV Q10H MARV Insulin Aspart (Novolog) 0 unit SUBCUT TIDAC MARV; Protocol Ondansetron HCl (Zofran) 4 mg IVPUSH Q4H PRN PRN Reason: Nausea Sodium Chloride (Saline Flush) 2.5 ml FLUSH ASDIRECTED PRN PRN Reason: Keep Vein Open Assessment/Plan Comment:: This 59 year old female admitted with acute respiratory failure with hypoxia and CAP 1. Acute respiratory failure with hypoxia and CAP - Continue Oxygen to keep sats greater than 90, wean as possible to RA - IS, Acapella - Nebulizers as needed - Rocephin and Azithromycin - NS 100 mls.hr overnight - Send respiratory panel 2. DM Type 2 - Novolog SSI - Blood glucose with all meals 3. Hypothyroid - Continue medications - Goiter noted on CT, follow with PCP VTE prophylaxis: Lovenox Dispo: 1-2 days
[2020-04-12] MEDS: Sodium Chloride 0.9% 1,000 ML IV SCH (15:54)
[2020-04-12] MEDS: Enoxaparin 40 MG/0.4 ML Syringe SUBCUT SCH (15:55)
[2020-04-12] MEDS ORDERED: Albuterol/Ipratropium 3.0-0.5 MG/3 ML Neb Soln NEB PRN (16:26)
[2020-04-12] MEDS: Insulin Aspart 100 Units/ML 3 ML Pen SUBCUT SCH (19:10)
[2020-04-13] MEDS: Acetaminophen 325 MG Tab PO PRN ×3 (01:45→18:52)
[2020-04-13] MEDS: Sodium Chloride 0.9% 1,000 ML IV SCH ×2 (01:46→14:17)
[2020-04-13 06:09] LABS: BLOOD UREA NITROGEN,BUN 15 mg/dL (7.0-18.0); CARBON DIOXIDE,CO2 24.3 mmol/L (21.0-32.0); CHLORIDE,CL 104 mmol/L (98-107); GLUCOSE RANDOM 95 mg/dL (74-106); POTASSIUM,K 3.3 mmol/L (3.5-5.1); SODIUM,NA 138 mmol/L (136-145)
[2020-04-13] MEDS: Insulin Aspart 100 Units/ML 3 ML Pen SUBCUT SCH ×3 (08:10→19:08)
[2020-04-13] MEDS: THYROID PORK 30 MG PO SCH (08:13)
[2020-04-13] MEDS: THYROID PORK 90 MG PO SCH (08:14)
[2020-04-13] MEDS: Azithromycin 500 MG in Sodium Chloride 0.9% 250 ML IV SCH (09:24)
[2020-04-13] MEDS ORDERED: Potassium Chloride 10% 20 MEQ/15 ML Soln 30 ML UD Cup PO ONE (10:00)
--- NOTE | 2020-04-13 10:02 | PCM.PN ---
- General Info Date of Service: 04/13/20 Admission Dx/Problem (Free Text): Admission Diagnosis/Problem Admission Diagnosis/Problem Hypoxia Subjective Update: seen at bedside, feels slightly better, still requiring oxygen 2L - Review of Systems General: Denies: Fever, Weakness, Fatigue Pulmonary: Denies: Shortness of Breath, Pleuritic Chest Pain Cardiovascular: Denies: Chest Pain, Palpitations Gastrointestinal: Denies: Abdominal Pain, Constipation Genitourinary: Denies: Dysuria, Frequency, Burning Musculoskeletal: Denies: Neck Pain, Shoulder Pain, Arm Pain Skin: Denies: Cyanosis, Jaundice, Mottled, Pallor - Patient Data Vitals - Most Recent: Last Vital Signs Temp 36.0 C L 04/13/20 08:00 Pulse 65 04/13/20 08:00 Resp 16 04/13/20 08:00 BP 98/50 L 04/13/20 08:00 Pulse Ox 93 L 04/13/20 08:00 Weight - Most Recent: 89.811 kg I&O - Last 24 Hours: Intake & Output 04/12/20 04/13/20 04/13/20 22:59 06:59 14:59 Intake Total 480 1000 Output Total 860 Balance -380 1000 Lab Results Last 24 Hours: Laboratory Results - last 24 hr 04/12/20 04/12/20 04/12/20 Range/Units 10:30 10:59 10:59 WBC 6.91 (4.0-11.0) K/uL RBC 5.08 (4.30-5.90) M/uL Hgb 14.5 (12.0-16.0) g/dL Hct 44.0 (36.0-46.0) % MCV 86.6 (80.0-98.0) fL MCH 28.5 (27.0-32.0) pg MCHC 33.0 (31.0-37.0) g/dL RDW Std Deviation 44.1 (28.0-62.0) fl RDW Coeff of César 14 (11.0-15.0) % Plt Count 136 L (150-400) K/uL MPV 9.80 (7.40-12.00) fL Neut % (Auto) 67.3 (48.0-80.0) % Lymph % (Auto) 19.0 (16.0-40.0) % [place] % (Auto) 13.6 (0.0-15.0) % Eos % (Auto) 0.0 (0.0-7.0) % Baso % (Auto) 0.1 (0.0-1.5) % Neut # (Auto) 4.7 (1.4-5.7) K/uL Lymph # (Auto) 1.3 (0.6-2.4) K/uL [place] # (Auto) 0.9 H (0.0-0.8) K/uL Eos # (Auto) 0.0 (0.0-0.7) K/uL Baso # (Auto) 0.0 (0.0-0.1) K/uL Nucleated RBC % 0.0 /100WBC Nucleated RBCs # 0 K/uL Sodium 133 L (136-145) mmol/L Potassium 3.5 (3.5-5.1) mmol/L Chloride 97 L (98-107) mmol/L Carbon Dioxide 25.6 (21.0-32.0) mmol/L BUN 19 H (7.0-18.0) mg/dL Creatinine 1.0 (0.6-1.0) mg/dL Est Cr Clr Drug Dosing 48.87 mL/min Estimated GFR (MDRD) 56.4 ml/min Glucose 130 H (74-106) mg/dL POC Glucose (60-110) mg/dL Calcium 8.5 (8.5-10.1) mg/dL Magnesium (1.8-2.4) mg/dL Total Bilirubin 0.7 (0.2-1.0) mg/dL AST 62 H (15-37) IU/L ALT 67 H (14-63) IU/L Alkaline Phosphatase 71 (46-116) U/L Troponin I < 0.050 (0.000-0.056) ng/mL Total Protein 7.1 (6.4-8.2) g/dL Albumin 3.1 L (3.4-5.0) g/dL Globulin 4.0 (2.6-4.0) g/dL Albumin/Globulin Ratio 0.8 L (0.9-1.6) Lipase 94 (73-393) U/L Urine Color YELLOW Urine Appearance CLEAR Urine pH 6.5 (5.0-8.0) Ur Specific [place] 1.015 (1.001-1.035) Urine Protein 30 H (NEGATIVE) mg/dL Urine Glucose (UA) >=1000 (NEGATIVE) mg/dL Urine Ketones 15 H (NEGATIVE) mg/dL Urine Occult Blood MODERATE H (NEGATIVE) Urine Nitrite NEGATIVE (NEGATIVE) Urine Bilirubin SMALL H (NEGATIVE) Urine Ictotest NEGATIVE Urine Urobilinogen 1.0 (<2.0) EU/dL Ur Leukocyte Esterase NEGATIVE (NEGATIVE) Urine RBC 5-10 (0-2/HPF) Urine WBC 0-2 (0-5/HPF) Ur Epithelial Cells FEW (NONE-FEW) Urine Bacteria RARE (NEGATIVE) SARS-CoV-2 RNA (ESTELITA) (NEGATIVE) 04/12/20 04/12/20 04/13/20 Range/Units 11:05 18:39 05:35 WBC 5.93 (4.0-11.0) K/uL RBC 4.68 (4.30-5.90) M/uL Hgb 13.6 (12.0-16.0) g/dL Hct 41.3 (36.0-46.0) % MCV 88.2 (80.0-98.0) fL MCH 29.1 (27.0-32.0) pg MCHC 32.9 (31.0-37.0) g/dL RDW Std Deviation 46.7 (28.0-62.0) fl RDW Coeff of César 14 (11.0-15.0) % Plt Count 145 L (150-400) K/uL MPV 9.60 (7.40-12.00) fL Neut % (Auto) 66.9 (48.0-80.0) % Lymph % (Auto) 20.4 (16.0-40.0) % [place] % (Auto) 12.1 (0.0-15.0) % Eos % (Auto) 0.3 (0.0-7.0) % Baso % (Auto) 0.3 (0.0-1.5) % Neut # (Auto) 4.0 (1.4-5.7) K/uL Lymph # (Auto) 1.2 (0.6-2.4) K/uL [place] # (Auto) 0.7 (0.0-0.8) K/uL Eos # (Auto) 0.0 (0.0-0.7) K/uL Baso # (Auto) 0.0 (0.0-0.1) K/uL Nucleated RBC % 0.0 /100WBC Nucleated RBCs # 0 K/uL Sodium (136-145) mmol/L Potassium (3.5-5.1) mmol/L Chloride (98-107) mmol/L Carbon Dioxide (21.0-32.0) mmol/L BUN (7.0-18.0) mg/dL Creatinine (0.6-1.0) mg/dL Est Cr Clr Drug Dosing mL/min Estimated GFR (MDRD) ml/min Glucose (74-106) mg/dL POC Glucose 124 H (60-110) mg/dL Calcium (8.5-10.1) mg/dL Magnesium (1.8-2.4) mg/dL Total Bilirubin (0.2-1.0) mg/dL AST (15-37) IU/L ALT (14-63) IU/L Alkaline Phosphatase (46-116) U/L Troponin I (0.000-0.056) ng/mL Total Protein (6.4-8.2) g/dL Albumin (3.4-5.0) g/dL Globulin (2.6-4.0) g/dL Albumin/Globulin Ratio (0.9-1.6) Lipase (73-393) U/L Urine Color Urine Appearance Urine pH (5.0-8.0) Ur Specific [place] (1.001-1.035) Urine Protein (NEGATIVE) mg/dL Urine Glucose (UA) (NEGATIVE) mg/dL Urine Ketones (NEGATIVE) mg/dL Urine Occult Blood (NEGATIVE) Urine Nitrite (NEGATIVE) Urine Bilirubin (NEGATIVE) Urine Ictotest Urine Urobilinogen (<2.0) EU/dL Ur Leukocyte Esterase (NEGATIVE) Urine RBC (0-2/HPF) Urine WBC (0-5/HPF) Ur Epithelial Cells (NONE-FEW) Urine Bacteria (NEGATIVE) SARS-CoV-2 RNA (ESTELITA) NEGATIVE (NEGATIVE) 04/13/20 04/13/20 Range/Units 05:35 06:05 WBC (4.0-11.0) K/uL RBC (4.30-5.90) M/uL Hgb (12.0-16.0) g/dL Hct (36.0-46.0) % MCV (80.0-98.0) fL MCH (27.0-32.0) pg MCHC (31.0-37.0) g/dL RDW Std Deviation (28.0-62.0) fl RDW Coeff of César (11.0-15.0) % Plt Count (150-400) K/uL MPV (7.40-12.00) fL Neut % (Auto) (48.0-80.0) % Lymph % (Auto) (16.0-40.0) % [place] % (Auto) (0.0-15.0) % Eos % (Auto) (0.0-7.0) % Baso % (Auto) (0.0-1.5) % Neut # (Auto) (1.4-5.7) K/uL Lymph # (Auto) (0.6-2.4) K/uL [place] # (Auto) (0.0-0.8) K/uL Eos # (Auto) (0.0-0.7) K/uL Baso # (Auto) (0.0-0.1) K/uL Nucleated RBC % /100WBC Nucleated RBCs # K/uL Sodium 138 (136-145) mmol/L Potassium 3.3 L (3.5-5.1) mmol/L Chloride 104 (98-107) mmol/L Carbon Dioxide 24.3 (21.0-32.0) mmol/L BUN 15 (7.0-18.0) mg/dL Creatinine 0.7 (0.6-1.0) mg/dL Est Cr Clr Drug Dosing TNP mL/min Estimated GFR (MDRD) > 60.0 ml/min Glucose 95 (74-106) mg/dL POC Glucose 86 (60-110) mg/dL Calcium 7.7 L (8.5-10.1) mg/dL Magnesium 1.9 (1.8-2.4) mg/dL Total Bilirubin (0.2-1.0) mg/dL AST (15-37) IU/L ALT (14-63) IU/L Alkaline Phosphatase (46-116) U/L Troponin I (0.000-0.056) ng/mL Total Protein (6.4-8.2) g/dL Albumin (3.4-5.0) g/dL Globulin (2.6-4.0) g/dL Albumin/Globulin Ratio (0.9-1.6) Lipase (73-393) U/L Urine Color Urine Appearance Urine pH (5.0-8.0) Ur Specific [place] (1.001-1.035) Urine Protein (NEGATIVE) mg/dL Urine Glucose (UA) (NEGATIVE) mg/dL Urine Ketones (NEGATIVE) mg/dL Urine Occult Blood (NEGATIVE) Urine Nitrite (NEGATIVE) Urine Bilirubin (NEGATIVE) Urine Ictotest Urine Urobilinogen (<2.0) EU/dL Ur Leukocyte Esterase (NEGATIVE) Urine RBC (0-2/HPF) Urine WBC (0-5/HPF) Ur Epithelial Cells (NONE-FEW) Urine Bacteria (NEGATIVE) SARS-CoV-2 RNA (ESTELITA) (NEGATIVE) Med Orders - Current: Current Medications Acetaminophen (Tylenol) 650 mg PO Q4H PRN PRN Reason: Pain (Mild 1-3)/fever Last Admin: 04/13/20 09:22 Dose: 650 mg Documented by: Albuterol/Ipratropium (Duoneb 3.0-0.5 Mg/3 Ml) 3 ml NEB Q4HRRT PRN PRN Reason: Shortness of Breath Enoxaparin Sodium (Lovenox) 40 mg SUBCUT Q24H [facility] Last Admin: 04/12/20 15:55 Dose: 40 mg Documented by: Azithromycin 500 mg/ Sodium (Chloride) 250 mls @ 250 mls/hr IV DAILY [facility] Last Admin: 04/13/20 09:24 Dose: 250 mls/hr Documented by: Ceftriaxone Sodium/Dextrose 1 (gm/ Premix) 50 mls @ 100 mls/hr IV Q24H [facility] Sodium Chloride (Normal Saline) 1,000 mls @ 100 mls/hr IV Q10H [facility] Last Admin: 04/13/20 01:46 Dose: 100 mls/hr Documented by: Insulin Aspart (Novolog) 0 unit SUBCUT TIDAC [facility]; Protocol Last Admin: 04/13/20 08:10 Dose: Not Given Documented by: Ondansetron HCl (Zofran) 4 mg IVPUSH Q4H PRN PRN Reason: Nausea Thyroid,Pork [[place] (Thyroid] 90 Mg) 1 each PO ACBREAKFAST MARV Last Admin: 04/13/20 08:14 Dose: Not Given Documented by: Thyroid,Pork 30 Mg) 1 each PO ACBREAKFAST MARV Last Admin: 04/13/20 08:13 Dose: Not Given Documented by: Thyroid,Pork [[place] (Thyroid] 90 Mg) 1 each PO 04/13/20@1100 ONE Stop: 04/13/20 11:01 Thyroid,Pork 30 Mg) 1 each PO 04/13/20@1100 ONE Stop: 04/13/20 11:01 Potassium Chloride (Potassium Chloride) 40 meq PO ONETIME ONE Stop: 04/13/20 10:01 Sodium Chloride (Saline Flush) 2.5 ml FLUSH ASDIRECTED PRN PRN Reason: Keep Vein Open Discontinued Medications Diphenhydramine HCl (Benadryl) 25 mg IVPUSH ONETIME ONE Stop: 04/12/20 14:49 Last Admin: 04/12/20 14:53 Dose: 25 mg Documented by: Sodium Chloride (Normal Saline) 1,000 mls @ 999 mls/hr IV STAT ONE Stop: 04/12/20 11:46 Last Admin: 04/12/20 10:55 Dose: 999 mls/hr Documented by: Ceftriaxone Sodium/Dextrose 1 (gm/ Premix) 50 mls @ 100 mls/hr IV ONETIME ONE Stop: 04/12/20 14:09 Last Admin: 04/12/20 13:57 Dose: 100 mls/hr Documented by: Azithromycin 500 mg/ Sodium (Chloride) 250 mls @ 250 mls/hr IV ONETIME MARV Last Admin: 04/12/20 14:20 Dose: 250 mls/hr Documented by: Iopamidol (Isovue-370 (76%)) 75 ml IVPUSH ONETIME STA Stop: 04/12/20 14:08 Last Admin: 04/12/20 14:08 Dose: 75 ml Documented by: Metoclopramide HCl (Reglan) 10 mg IV ONETIME ONE Stop: 04/12/20 14:49 Last Admin: 04/12/20 14:56 Dose: 10 mg Documented by: Ondansetron HCl (Zofran) 4 mg IVPUSH ONETIME ONE Stop: 04/12/20 10:53 Last Admin: 04/12/20 10:57 Dose: 4 mg Documented by: Ondansetron HCl (Zofran) 4 mg IVPUSH ONETIME ONE Stop: 04/12/20 13:47 Last Admin: 04/12/20 13:56 Dose: 4 mg Documented by: Sodium Chloride (Saline Flush) 10 ml FLUSH ASDIRECTED PRN PRN Reason: Keep Vein Open Last Admin: 04/12/20 10:55 Dose: 10 ml Documented by: Sodium Chloride (Saline Flush) 2.5 ml FLUSH ASDIRECTED PRN PRN Reason: Keep Vein Open Last Admin: 04/12/20 10:55 Dose: 2.5 ml Documented by: - Exam General: Alert, Oriented, Cooperative, No Acute Distress Lungs: Decreased Breath Sounds, Rales Cardiovascular: Regular Rate, Regular Rhythm GI/Abdominal Exam: Normal Bowel Sounds, Soft, Non-Tender Back Exam: Normal Inspection Extremities: Normal Inspection, Normal Range of Motion Sepsis Event Note - Evaluation Sepsis Screening Result: No Definite Risk - Focused Exam Vital Signs: Vital Signs Temp Pulse Resp BP Pulse Ox 04/13/20 08:00 36.0 C L 65 16 98/50 L 93 L 04/13/20 04:28 36.1 C 64 18 112/58 L 94 L 04/13/20 00:21 36.7 C 73 16 121/57 L 91 L - Problem List & Annotations (1) Acute respiratory failure with hypoxia SNOMED Code(s): 05347528, 947982547 Code(s): J96.01 - ACUTE RESPIRATORY FAILURE WITH HYPOXIA Status: Acute Current Visit: Yes (2) CAP (community acquired pneumonia) SNOMED Code(s): 183116274 Code(s): J18.9 - PNEUMONIA, UNSPECIFIED ORGANISM Status: Acute Current Visit: Yes (3) DM type 2 (diabetes mellitus, type 2) SNOMED Code(s): 72509557 Code(s): E11.9 - TYPE 2 DIABETES MELLITUS WITHOUT COMPLICATIONS Status: Chronic Current Visit: Yes Qualifiers: Diabetes mellitus roasterman insulin use: without fpc use Diabetes mellitus complication status: without complication Qualified Code(s): E11.9 - Type 2 diabetes mellitus without complications (4) HX: breast cancer SNOMED Code(s): 648797620 Code(s): Z85.3 - PERSONAL HISTORY OF MALIGNANT NEOPLASM OF BREAST Status: Chronic Current Visit: Yes (5) Hypothyroid SNOMED Code(s): 33895597 Code(s): E03.9 - HYPOTHYROIDISM, UNSPECIFIED Status: Chronic Current Visit: Yes - Problem List Review Problem List Initiated/Reviewed/Updated: Yes - My Orders Last 24 Hours: My Active Orders 04/12/20 15:00 Telemetry Monitoring [Cardiac Monitoring] [RC] Q8H 04/13/20 10:00 Potassium Chloride 40 meq PO ONETIME ONE 04/13/20 10:15 Lactated Ringers [Ringers, Lactated] 500 ml IV .BOLUS - Plan Plan:: This 59 year old female admitted with acute respiratory failure with hypoxia and CAP 1. Acute respiratory failure with hypoxia and CAP - Continue Oxygen to keep sats greater than 90, wean as possible to RA - cont IS, Acapella - Nebulizers as needed - cont IV Rocephin and Azithromycin - cont NS 100 mls/hr - f/u respiratory panel 2. DM Type 2 - Novolog SSI - Blood glucose with all meals 3. Hypothyroid - Continue medications - Goiter noted on CT, follow with PCP VTE prophylaxis: Lovenox Dispo: 1-2 days
[2020-04-13] MEDS ORDERED: Lactated Ringers 500 ML IV SCH (10:15)
[2020-04-13] MEDS ORDERED: THYROID PORK 30 MG PO ONE (11:00)
[2020-04-13] MEDS: THYROID PORK 90 MG PO ONE ×2 (11:02→11:03)
[2020-04-13] MEDS: cefTRIAXone 1 GM in Premix Bag 1 BAG IV SCH (11:22)
[2020-04-13] MEDS: Ondansetron 4 MG/2 ML SDV IVPUSH PRN ×2 (11:25→22:47)
[2020-04-13] MEDS: Enoxaparin 40 MG/0.4 ML Syringe SUBCUT SCH (15:49)
[2020-04-14] MEDS: Sodium Chloride 0.9% 1,000 ML IV SCH ×3 (02:26→21:08)
[2020-04-14] MEDS: Ondansetron 4 MG/2 ML SDV IVPUSH PRN ×2 (02:54→08:10)
[2020-04-14 06:20] LABS: BLOOD UREA NITROGEN,BUN 14 mg/dL (7.0-18.0); CARBON DIOXIDE,CO2 24.5 mmol/L (21.0-32.0); CHLORIDE,CL 108 mmol/L (98-107); GLUCOSE RANDOM 94 mg/dL (74-106); POTASSIUM,K 4.2 mmol/L (3.5-5.1); SODIUM,NA 140 mmol/L (136-145)
[2020-04-14] MEDS: Insulin Aspart 100 Units/ML 3 ML Pen SUBCUT SCH ×3 (09:30→17:21)
[2020-04-14] MEDS: THYROID PORK 30 MG PO SCH (09:36)
[2020-04-14] MEDS: THYROID PORK 90 MG PO SCH (09:36)
[2020-04-14] MEDS: Azithromycin 500 MG in Sodium Chloride 0.9% 250 ML IV SCH (09:43)
[2020-04-14 10:06] LABS: BORDETELLA PARAPERT IS1001 Not Detected (Not Detected)
[2020-04-14] MEDS: cefTRIAXone 1 GM in Premix Bag 1 BAG IV SCH (12:18)
--- NOTE | 2020-04-14 13:24 | PCM.PN ---
- General Info Date of Service: 04/14/20 - Review of Systems Systems Review Comment:: reports some improvement in shortness of breath - Patient Data Vitals - Most Recent: Last Vital Signs Temp 36.4 C 04/14/20 08:00 Pulse 75 04/14/20 08:00 Resp 16 04/14/20 08:00 BP 125/57 L 04/14/20 08:00 Pulse Ox 92 L 04/14/20 08:00 Weight - Most Recent: 89.811 kg I&O - Last 24 Hours: Intake & Output 04/13/20 04/14/20 04/14/20 22:59 06:59 14:59 Intake Total 400 2277 Output Total 500 400 Balance -100 1877 Lab Results Last 24 Hours: Laboratory Results - last 24 hr 04/12/20 04/13/20 04/14/20 Range/Units 17:25 17:50 04:53 WBC 5.11 (4.0-11.0) K/uL RBC 4.78 (4.30-5.90) M/uL Hgb 13.3 (12.0-16.0) g/dL Hct 42.6 (36.0-46.0) % MCV 89.1 (80.0-98.0) fL MCH 27.8 (27.0-32.0) pg MCHC 31.2 (31.0-37.0) g/dL RDW Std Deviation 47.6 (28.0-62.0) fl RDW Coeff of César 15 (11.0-15.0) % Plt Count 157 (150-400) K/uL MPV 9.90 (7.40-12.00) fL Neut % (Auto) 66.5 (48.0-80.0) % Lymph % (Auto) 18.4 (16.0-40.0) % [place] % (Auto) 12.5 (0.0-15.0) % Eos % (Auto) 2.2 (0.0-7.0) % Baso % (Auto) 0.4 (0.0-1.5) % Neut # (Auto) 3.4 (1.4-5.7) K/uL Lymph # (Auto) 0.9 (0.6-2.4) K/uL [place] # (Auto) 0.6 (0.0-0.8) K/uL Eos # (Auto) 0.1 (0.0-0.7) K/uL Baso # (Auto) 0.0 (0.0-0.1) K/uL Nucleated RBC % 0.0 /100WBC Nucleated RBCs # 0 K/uL Sodium (136-145) mmol/L Potassium (3.5-5.1) mmol/L Chloride (98-107) mmol/L Carbon Dioxide (21.0-32.0) mmol/L BUN (7.0-18.0) mg/dL Creatinine (0.6-1.0) mg/dL Est Cr Clr Drug Dosing Estimated GFR (MDRD) ml/min Glucose (74-106) mg/dL POC Glucose 95 (60-110) mg/dL Calcium (8.5-10.1) mg/dL Phosphorus (2.6-4.7) mg/dL Magnesium (1.8-2.4) mg/dL Adenovirus (PCR) Not Detected (Not Detected) B. pertussis DNA (PCR) Not Detected (Not Detected) B.parapertussis DNA PCR Not Detected (Not Detected) C. pneumoniae DNA (PCR) Not Detected (Not Detected) Coronavirus (PCR) Human Metapneumovir PCR Not Detected (Not Detected) Influenza A (RT-PCR) Not Detected (Not Detected) Influenza B (RT-PCR) Not Detected (Not Detected) M. pneumoniae (PCR) Not Detected (Not Detected) Parainfluen 1,2,3,4 PCR RSV (PCR) Not Detected (Not Detected) Entero/Rhino (PCR) Not Detected (Not Detected) 04/14/20 04/14/20 04/14/20 Range/Units 04:53 06:43 12:15 WBC (4.0-11.0) K/uL RBC (4.30-5.90) M/uL Hgb (12.0-16.0) g/dL Hct (36.0-46.0) % MCV (80.0-98.0) fL MCH (27.0-32.0) pg MCHC (31.0-37.0) g/dL RDW Std Deviation (28.0-62.0) fl RDW Coeff of César (11.0-15.0) % Plt Count (150-400) K/uL MPV (7.40-12.00) fL Neut % (Auto) (48.0-80.0) % Lymph % (Auto) (16.0-40.0) % [place] % (Auto) (0.0-15.0) % Eos % (Auto) (0.0-7.0) % Baso % (Auto) (0.0-1.5) % Neut # (Auto) (1.4-5.7) K/uL Lymph # (Auto) (0.6-2.4) K/uL [place] # (Auto) (0.0-0.8) K/uL Eos # (Auto) (0.0-0.7) K/uL Baso # (Auto) (0.0-0.1) K/uL Nucleated RBC % /100WBC Nucleated RBCs # K/uL Sodium 140 (136-145) mmol/L Potassium 4.2 (3.5-5.1) mmol/L Chloride 108 H (98-107) mmol/L Carbon Dioxide 24.5 (21.0-32.0) mmol/L BUN 14 (7.0-18.0) mg/dL Creatinine 0.6 (0.6-1.0) mg/dL Est Cr Clr Drug Dosing TNP Estimated GFR (MDRD) > 60.0 ml/min Glucose 94 (74-106) mg/dL POC Glucose 96 108 (60-110) mg/dL Calcium 7.9 L (8.5-10.1) mg/dL Phosphorus 3.0 (2.6-4.7) mg/dL Magnesium 1.9 (1.8-2.4) mg/dL Adenovirus (PCR) (Not Detected) B. pertussis DNA (PCR) (Not Detected) B.parapertussis DNA PCR (Not Detected) C. pneumoniae DNA (PCR) (Not Detected) Coronavirus (PCR) Human Metapneumovir PCR (Not Detected) Influenza A (RT-PCR) (Not Detected) Influenza B (RT-PCR) (Not Detected) M. pneumoniae (PCR) (Not Detected) Parainfluen 1,2,3,4 PCR RSV (PCR) (Not Detected) Entero/Rhino (PCR) (Not Detected) [place] Results Last 24 Hours: Microbiology 04/13/20 11:30 Influenza Type A Antigen Screen - Final Nasopharyngeal Swab NEGATIVE INFLUENZA A VIRUS AG REFERENCE RANGE: NEGATIVE Influenza Type B Antigen Screen - Final NEGATIVE INFLUENZA B VIRUS AG REFERENCE RANGE: NEGATIVE Med Orders - Current: Current Medications Acetaminophen (Tylenol) 650 mg PO Q4H PRN PRN Reason: Pain (Mild 1-3)/fever Last Admin: 04/13/20 18:52 Dose: 650 mg Documented by: Albuterol/Ipratropium (Duoneb 3.0-0.5 Mg/3 Ml) 3 ml NEB Q4HRRT PRN PRN Reason: Shortness of Breath Dexamethasone (Dexamethasone) 6 mg PO DAILY [facility] Enoxaparin Sodium (Lovenox) 40 mg SUBCUT Q24H [facility] Last Admin: 04/13/20 15:49 Dose: 40 mg Documented by: Azithromycin 500 mg/ Sodium (Chloride) 250 mls @ 250 mls/hr IV DAILY [facility] Last Admin: 04/14/20 09:43 Dose: 250 mls/hr Documented by: Ceftriaxone Sodium/Dextrose 1 (gm/ Premix) 50 mls @ 100 mls/hr IV Q24H [facility] Last Admin: 04/14/20 12:18 Dose: 100 mls/hr Documented by: Sodium Chloride (Normal Saline) 1,000 mls @ 100 mls/hr IV Q10H [facility] Last Admin: 04/14/20 09:37 Dose: Not Given Documented by: Lactated Ringer's (Ringers, Lactated) 500 mls @ 999 mls/hr IV .BOLUS [facility] Last Admin: 04/13/20 10:55 Dose: 999 mls/hr Documented by: Remdesivir 200 mg/ Sodium (Chloride) 250 mls @ 125 mls/hr IV ONETIME [facility] Stop: 04/14/20 15:30 Remdesivir 100 mg/ Sodium (Chloride) 100 mls @ 100 mls/hr IV Q24H [facility] Stop: 04/18/20 14:30 Insulin Aspart (Novolog) 0 unit SUBCUT TIDAC [facility]; Protocol Last Admin: 04/14/20 12:16 Dose: Not Given Documented by: Ondansetron HCl (Zofran) 4 mg IVPUSH Q4H PRN PRN Reason: Nausea Last Admin: 04/14/20 08:10 Dose: 4 mg Documented by: Thyroid,Pork [[place] (Thyroid] 90 Mg) 1 each PO ACBREAKFAST MARV Last Admin: 04/14/20 09:36 Dose: Not Given Documented by: Thyroid,Pork 30 Mg) 1 each PO ACBREAKFAST MARV Last Admin: 04/14/20 09:36 Dose: Not Given Documented by: Sodium Chloride (Saline Flush) 2.5 ml FLUSH ASDIRECTED PRN PRN Reason: Keep Vein Open Discontinued Medications Diphenhydramine HCl (Benadryl) 25 mg IVPUSH ONETIME ONE Stop: 04/12/20 14:49 Last Admin: 04/12/20 14:53 Dose: 25 mg Documented by: Sodium Chloride (Normal Saline) 1,000 mls @ 999 mls/hr IV STAT ONE Stop: 04/12/20 11:46 Last Admin: 04/12/20 10:55 Dose: 999 mls/hr Documented by: Ceftriaxone Sodium/Dextrose 1 (gm/ Premix) 50 mls @ 100 mls/hr IV ONETIME ONE Stop: 04/12/20 14:09 Last Admin: 04/12/20 13:57 Dose: 100 mls/hr Documented by: Azithromycin 500 mg/ Sodium (Chloride) 250 mls @ 250 mls/hr IV ONETIME MARV Last Admin: 04/12/20 14:20 Dose: 250 mls/hr Documented by: Iopamidol (Isovue-370 (76%)) 75 ml IVPUSH ONETIME STA Stop: 04/12/20 14:08 Last Admin: 04/12/20 14:08 Dose: 75 ml Documented by: Metoclopramide HCl (Reglan) 10 mg IV ONETIME ONE Stop: 04/12/20 14:49 Last Admin: 04/12/20 14:56 Dose: 10 mg Documented by: Ondansetron HCl (Zofran) 4 mg IVPUSH ONETIME ONE Stop: 04/12/20 10:53 Last Admin: 04/12/20 10:57 Dose: 4 mg Documented by: Ondansetron HCl (Zofran) 4 mg IVPUSH ONETIME ONE Stop: 04/12/20 13:47 Last Admin: 04/12/20 13:56 Dose: 4 mg Documented by: Thyroid,Pork [[place] (Thyroid] 90 Mg) 1 each PO 04/13/20@1100 ONE Stop: 04/13/20 11:01 Last Admin: 04/13/20 11:03 Dose: 1 each Documented by: Thyroid,Pork 30 Mg) 1 each PO 04/13/20@1100 ONE Stop: 04/13/20 11:01 Last Admin: 04/13/20 11:04 Dose: 1 each Documented by: Potassium Chloride (Potassium Chloride) 40 meq PO ONETIME ONE Stop: 04/13/20 10:01 Last Admin: 04/13/20 11:01 Dose: 40 meq Documented by: Sodium Chloride (Saline Flush) 10 ml FLUSH ASDIRECTED PRN PRN Reason: Keep Vein Open Last Admin: 04/12/20 10:55 Dose: 10 ml Documented by: Sodium Chloride (Saline Flush) 2.5 ml FLUSH ASDIRECTED PRN PRN Reason: Keep Vein Open Last Admin: 04/12/20 10:55 Dose: 2.5 ml Documented by: - Exam General: Alert, Oriented Neck: Supple Lungs: Clear to Auscultation, Normal Respiratory Effort Cardiovascular: Regular Rate, Regular Rhythm GI/Abdominal Exam: Soft, Non-Tender, No Distention Extremities: Non-Tender, No Pedal Edema Skin: Warm, Dry, Intact Neurological: No New Focal Deficit Sepsis Event Note - Evaluation Sepsis Screening Result: No Definite Risk - Focused Exam Vital Signs: Vital Signs Temp Pulse Resp BP Pulse Ox 04/14/20 08:00 36.4 C 75 16 125/57 L 92 L 04/14/20 04:19 35.9 C L 68 16 125/72 93 L - Problem List Review Problem List Initiated/Reviewed/Updated: Yes - My Orders Last 24 Hours: My Active Orders 04/14/20 13:30 Remdesivir (Eua) [Remdesivir (EUA)] 200 mg Sodium Chloride 0.9% [Normal Saline] 250 ml IV ONETIME dexAMETHasone 6 mg PO DAILY 04/15/20 05:11 CBC WITH AUTO DIFF [HEME] AM COMPREHENSIVE METABOLIC PN,CMP [CHEM] AM 04/15/20 13:30 Remdesivir (Eua) [Remdesivir (EUA)] 100 mg Sodium Chloride 0.9% [Normal Saline] 100 ml IV Q24H 04/16/20 05:11 CBC WITH AUTO DIFF [HEME] AM COMPREHENSIVE METABOLIC PN,CMP [CHEM] AM 04/17/20 05:11 CBC WITH AUTO DIFF [HEME] AM COMPREHENSIVE METABOLIC PN,CMP [CHEM] AM 04/18/20 05:11 CBC WITH AUTO DIFF [HEME] AM COMPREHENSIVE METABOLIC PN,CMP [CHEM] AM - Plan Plan:: This 59 year old female admitted with acute respiratory failure with hypoxia and CAP 1. Acute respiratory failure with hypoxia and COVID - Continue Oxygen to keep sats greater than 90, wean as possible to RA - COVID from [facility] lab came back positive today. Explained risks and benefits of Remdisivir including liver toxicity. Gave hand out explaning FDA emergency aproval and patient agrees to start remdesivir. - Start dexamethasone - Nebulizers as needed - cont IV Rocephin and Azithromycin - f/u respiratory panel 2. DM Type 2 - Novolog SSI - Blood glucose with all meals 3. Hypothyroid - Continue medications - Goiter noted on CT, follow with PCP VTE prophylaxis: Lovenox Dispo: 1-2 days
[2020-04-14] MEDS ORDERED: REMDESIVIR 200 MG in Sodium Chloride 0.9% 250 ML IV SCH (13:30)
[2020-04-14] MEDS ORDERED: REMDESIVIR 200 MG in Sodium Chloride 0.9% 250 ML IV ONE (14:30)
[2020-04-14] MEDS ORDERED: REMDESIVIR 100 MG in Sodium Chloride 0.9% 100 ML IV SCH (14:30)
[2020-04-14] MEDS: Dexamethasone 4 MG Tab PO SCH (18:08)
[2020-04-14] MEDS: Enoxaparin 40 MG/0.4 ML Syringe SUBCUT SCH (18:09)
[2020-04-14] MEDS ORDERED: Promethazine 25 MG/ML SDV IM PRN (18:52)
[2020-04-14] MEDS ORDERED: Albuterol/Ipratropium 4 GM Inhalation Spray INH PRN (21:25)
[2020-04-15] MEDS: Sodium Chloride 0.9% 1,000 ML IV SCH ×2 (06:32→17:40)
[2020-04-15] MEDS: THYROID PORK 30 MG PO SCH (06:38)
[2020-04-15] MEDS: THYROID PORK 90 MG PO SCH (06:38)
[2020-04-15 07:08] LABS: BLOOD UREA NITROGEN,BUN 13 mg/dL (7.0-18.0); CARBON DIOXIDE,CO2 25.5 mmol/L (21.0-32.0); CHLORIDE,CL 108 mmol/L (98-107); GLUCOSE RANDOM 139 mg/dL (74-106); POTASSIUM,K 4.2 mmol/L (3.5-5.1); SODIUM,NA 142 mmol/L (136-145)
[2020-04-15] MEDS: Insulin Aspart 100 Units/ML 3 ML Pen SUBCUT SCH ×3 (07:14→19:12)
[2020-04-15] MEDS: Dexamethasone 4 MG Tab PO SCH (08:28)
[2020-04-15] MEDS: Azithromycin 500 MG in Sodium Chloride 0.9% 250 ML IV SCH (08:29)
[2020-04-15] MEDS: cefTRIAXone 1 GM in Premix Bag 1 BAG IV SCH (11:20)
[2020-04-15] MEDS ORDERED: REMDESIVIR 100 MG in Sodium Chloride 0.9% 100 ML IV SCH (13:30)
--- NOTE | 2020-04-15 14:43 | PCM.PN ---
- General Info Date of Service: 04/15/20 - Review of Systems Systems Review Comment:: feeling much better, feels short of breath, but nausea has resolved - Patient Data Vitals - Most Recent: Last Vital Signs Temp 36.1 C 04/15/20 11:23 Pulse 58 L 04/15/20 11:23 Resp 18 04/15/20 11:23 BP 117/56 L 04/15/20 11:23 Pulse Ox 92 L 04/15/20 11:23 Weight - Most Recent: 89.811 kg I&O - Last 24 Hours: Intake & Output 04/14/20 04/15/20 04/15/20 22:59 06:59 14:59 Intake Total 1940 1910 930 Output Total 850 1700 Balance 1090 210 930 Lab Results Last 24 Hours: Laboratory Results - last 24 hr 04/14/20 04/15/20 04/15/20 Range/Units 17:11 06:15 06:15 WBC 3.37 L (4.0-11.0) K/uL RBC 4.98 (4.30-5.90) M/uL Hgb 14.1 (12.0-16.0) g/dL Hct 43.6 (36.0-46.0) % MCV 87.6 (80.0-98.0) fL MCH 28.3 (27.0-32.0) pg MCHC 32.3 (31.0-37.0) g/dL RDW Std Deviation 45.7 (28.0-62.0) fl RDW Coeff of César 14 (11.0-15.0) % Plt Count 190 (150-400) K/uL MPV 10.00 (7.40-12.00) fL Neut % (Auto) 71.8 (48.0-80.0) % Lymph % (Auto) 19.0 (16.0-40.0) % [place] % (Auto) 8.9 (0.0-15.0) % Eos % (Auto) 0.0 (0.0-7.0) % Baso % (Auto) 0.3 (0.0-1.5) % Neut # (Auto) 2.4 (1.4-5.7) K/uL Lymph # (Auto) 0.6 (0.6-2.4) K/uL [place] # (Auto) 0.3 (0.0-0.8) K/uL Eos # (Auto) 0.0 (0.0-0.7) K/uL Baso # (Auto) 0.0 (0.0-0.1) K/uL Nucleated RBC % 0.0 /100WBC Nucleated RBCs # 0 K/uL Sodium 142 (136-145) mmol/L Potassium 4.2 (3.5-5.1) mmol/L Chloride 108 H (98-107) mmol/L Carbon Dioxide 25.5 (21.0-32.0) mmol/L BUN 13 (7.0-18.0) mg/dL Creatinine 0.6 (0.6-1.0) mg/dL Est Cr Clr Drug Dosing 81.42 mL/min Estimated GFR (MDRD) > 60.0 ml/min Glucose 139 H (74-106) mg/dL POC Glucose 112 H (60-110) mg/dL Calcium 8.4 L (8.5-10.1) mg/dL Total Bilirubin 0.6 (0.2-1.0) mg/dL AST 32 (15-37) IU/L ALT 47 (14-63) IU/L Alkaline Phosphatase 66 (46-116) U/L Total Protein 6.6 (6.4-8.2) g/dL Albumin 2.5 L (3.4-5.0) g/dL Globulin 4.1 H (2.6-4.0) g/dL Albumin/Globulin Ratio 0.6 L (0.9-1.6) 04/15/20 04/15/20 Range/Units 06:36 12:30 WBC (4.0-11.0) K/uL RBC (4.30-5.90) M/uL Hgb (12.0-16.0) g/dL Hct (36.0-46.0) % MCV (80.0-98.0) fL MCH (27.0-32.0) pg MCHC (31.0-37.0) g/dL RDW Std Deviation (28.0-62.0) fl RDW Coeff of César (11.0-15.0) % Plt Count (150-400) K/uL MPV (7.40-12.00) fL Neut % (Auto) (48.0-80.0) % Lymph % (Auto) (16.0-40.0) % [place] % (Auto) (0.0-15.0) % Eos % (Auto) (0.0-7.0) % Baso % (Auto) (0.0-1.5) % Neut # (Auto) (1.4-5.7) K/uL Lymph # (Auto) (0.6-2.4) K/uL [place] # (Auto) (0.0-0.8) K/uL Eos # (Auto) (0.0-0.7) K/uL Baso # (Auto) (0.0-0.1) K/uL Nucleated RBC % /100WBC Nucleated RBCs # K/uL Sodium (136-145) mmol/L Potassium (3.5-5.1) mmol/L Chloride (98-107) mmol/L Carbon Dioxide (21.0-32.0) mmol/L BUN (7.0-18.0) mg/dL Creatinine (0.6-1.0) mg/dL Est Cr Clr Drug Dosing mL/min Estimated GFR (MDRD) ml/min Glucose (74-106) mg/dL POC Glucose 129 H 164 H (60-110) mg/dL Calcium (8.5-10.1) mg/dL Total Bilirubin (0.2-1.0) mg/dL AST (15-37) IU/L ALT (14-63) IU/L Alkaline Phosphatase (46-116) U/L Total Protein (6.4-8.2) g/dL Albumin (3.4-5.0) g/dL Globulin (2.6-4.0) g/dL Albumin/Globulin Ratio (0.9-1.6) Med Orders - Current: Current Medications Acetaminophen (Tylenol) 650 mg PO Q4H PRN PRN Reason: Pain (Mild 1-3)/fever Last Admin: 04/13/20 18:52 Dose: 650 mg Documented by: Albuterol/Ipratropium (Combivent Respimat) 0 gm INH Q4H PRN PRN Reason: Dyspnea Last Admin: 04/15/20 05:15 Dose: 1 puff Documented by: Dexamethasone (Dexamethasone) 6 mg PO DAILY [facility] Last Admin: 04/15/20 08:28 Dose: 6 mg Documented by: Enoxaparin Sodium (Lovenox) 40 mg SUBCUT Q24H [facility] Last Admin: 04/14/20 18:09 Dose: Not Given Documented by: Azithromycin 500 mg/ Sodium (Chloride) 250 mls @ 250 mls/hr IV DAILY [facility] Last Admin: 04/15/20 08:29 Dose: 250 mls/hr Documented by: Ceftriaxone Sodium/Dextrose 1 (gm/ Premix) 50 mls @ 100 mls/hr IV Q24H [facility] Last Admin: 04/15/20 11:20 Dose: 100 mls/hr Documented by: Lactated Ringer's (Ringers, Lactated) 500 mls @ 999 mls/hr IV .BOLUS [facility] Last Admin: 04/13/20 10:55 Dose: 999 mls/hr Documented by: Remdesivir 100 mg/ Sodium (Chloride) 100 mls @ 100 mls/hr IV Q24H [facility] Stop: 04/18/20 15:29 Insulin Aspart (Novolog) 0 unit SUBCUT TIDAC [facility]; Protocol Last Admin: 04/15/20 14:12 Dose: 1 unit Documented by: Ondansetron HCl (Zofran) 4 mg IVPUSH Q4H PRN PRN Reason: Nausea Last Admin: 04/14/20 08:10 Dose: 4 mg Documented by: Thyroid,Pork [[place] (Thyroid] 90 Mg) 1 each PO ACBREAKFAST [facility] Last Admin: 04/15/20 06:38 Dose: 1 each Documented by: Thyroid,Pork 30 Mg) 1 each PO ACBREAKFAST [facility] Last Admin: 04/15/20 06:38 Dose: 1 each Documented by: Promethazine HCl (Phenergan) 25 mg IM Q6H PRN PRN Reason: Nausea Sodium Chloride (Saline Flush) 2.5 ml FLUSH ASDIRECTED PRN PRN Reason: Keep Vein Open Discontinued Medications Albuterol/Ipratropium (Duoneb 3.0-0.5 Mg/3 Ml) 3 ml NEB Q4HRRT PRN PRN Reason: Shortness of Breath Diphenhydramine HCl (Benadryl) 25 mg IVPUSH ONETIME ONE Stop: 04/12/20 14:49 Last Admin: 04/12/20 14:53 Dose: 25 mg Documented by: Sodium Chloride (Normal Saline) 1,000 mls @ 999 mls/hr IV STAT ONE Stop: 04/12/20 11:46 Last Admin: 04/12/20 10:55 Dose: 999 mls/hr Documented by: Ceftriaxone Sodium/Dextrose 1 (gm/ Premix) 50 mls @ 100 mls/hr IV ONETIME ONE Stop: 04/12/20 14:09 Last Admin: 04/12/20 13:57 Dose: 100 mls/hr Documented by: Azithromycin 500 mg/ Sodium (Chloride) 250 mls @ 250 mls/hr IV ONETIME [facility] Last Admin: 04/12/20 14:20 Dose: 250 mls/hr Documented by: Sodium Chloride (Normal Saline) 1,000 mls @ 100 mls/hr IV Q10H [facility] Last Admin: 04/15/20 06:32 Dose: 100 mls/hr Documented by: Remdesivir 200 mg/ Sodium (Chloride) 250 mls @ 125 mls/hr IV ONETIME [facility] Stop: 04/14/20 15:30 Remdesivir 100 mg/ Sodium (Chloride) 100 mls @ 100 mls/hr IV Q24H [facility] Stop: 04/18/20 14:30 Remdesivir 100 mg/ Sodium (Chloride) 100 mls @ 100 mls/hr IV Q24H [facility] Stop: 04/18/20 15:30 Last Admin: 04/14/20 19:52 Dose: Not Given Documented by: Remdesivir 200 mg/ Sodium (Chloride) 250 mls @ 125 mls/hr IV ONETIME ONE Stop: 04/14/20 16:29 Last Admin: 04/14/20 19:51 Dose: Not Given Documented by: Iopamidol (Isovue-370 (76%)) 75 ml IVPUSH ONETIME [facility] Stop: 04/12/20 14:08 Last Admin: 04/12/20 14:08 Dose: 75 ml Documented by: Metoclopramide HCl (Reglan) 10 mg IV ONETIME ONE Stop: 04/12/20 14:49 Last Admin: 04/12/20 14:56 Dose: 10 mg Documented by: Ondansetron HCl (Zofran) 4 mg IVPUSH ONETIME ONE Stop: 04/12/20 10:53 Last Admin: 04/12/20 10:57 Dose: 4 mg Documented by: Ondansetron HCl (Zofran) 4 mg IVPUSH ONETIME ONE Stop: 04/12/20 13:47 Last Admin: 04/12/20 13:56 Dose: 4 mg Documented by: Thyroid,Pork [[place] (Thyroid] 90 Mg) 1 each PO 04/13/20@1100 ONE Stop: 04/13/20 11:01 Last Admin: 04/13/20 11:03 Dose: 1 each Documented by: Thyroid,Pork 30 Mg) 1 each PO 04/13/20@1100 ONE Stop: 04/13/20 11:01 Last Admin: 04/13/20 11:04 Dose: 1 each Documented by: Potassium Chloride (Potassium Chloride) 40 meq PO ONETIME ONE Stop: 04/13/20 10:01 Last Admin: 04/13/20 11:01 Dose: 40 meq Documented by: Sodium Chloride (Saline Flush) 10 ml FLUSH ASDIRECTED PRN PRN Reason: Keep Vein Open Last Admin: 04/12/20 10:55 Dose: 10 ml Documented by: Sodium Chloride (Saline Flush) 2.5 ml FLUSH ASDIRECTED PRN PRN Reason: Keep Vein Open Last Admin: 04/12/20 10:55 Dose: 2.5 ml Documented by: - Exam General: Alert, Oriented Neck: Supple Lungs: Clear to Auscultation, Normal Respiratory Effort Cardiovascular: Regular Rate, Regular Rhythm GI/Abdominal Exam: Normal Bowel Sounds, Soft, Non-Tender, No Organomegaly, No Distention Extremities: Non-Tender, No Pedal Edema Skin: Warm, Dry, Intact Neurological: No New Focal Deficit Sepsis Event Note - Evaluation Sepsis Screening Result: No Definite Risk - Focused Exam Vital Signs: Vital Signs Temp Pulse Resp BP Pulse Ox 04/15/20 11:23 36.1 C 58 L 18 117/56 L 92 L 04/15/20 08:25 36.2 C 58 L 18 111/55 L 92 L 04/15/20 05:00 36.1 C 65 18 141/74 H 93 L - Problem List Review Problem List Initiated/Reviewed/Updated: Yes - My Orders Last 24 Hours: My Active Orders 04/14/20 18:52 Promethazine [Phenergan] 25 mg IM Q6H PRN 04/14/20 21:25 RT Post Treatment Assessment [RC] Click to Edit RT Pre-Treatment Assessment [RC] Click to Edit Albuterol/Ipratropium [Combivent Respimat] See Dose Instructions INH Q4H PRN 04/15/20 14:24 Discontinue Telemetry Monitoring [Cardiac Monitoring Discontinue] [RC] Click to Edit 04/15/20 14:30 Remdesivir (Eua) [Remdesivir (EUA)] 100 mg Sodium Chloride 0.9% [Normal Saline] 100 ml IV Q24H 04/16/20 05:11 CBC WITH AUTO DIFF [HEME] AM COMPREHENSIVE METABOLIC PN,CMP [CHEM] AM 04/17/20 05:11 CBC WITH AUTO DIFF [HEME] AM COMPREHENSIVE METABOLIC PN,CMP [CHEM] AM 04/18/20 05:11 CBC WITH AUTO DIFF [HEME] AM COMPREHENSIVE METABOLIC PN,CMP [CHEM] AM - Plan Plan:: This 59 year old female admitted with acute respiratory failure with hypoxia and CAP 1. Acute respiratory failure with hypoxia and COVID - Continue Oxygen to keep sats greater than 90, wean as possible to RA - Continue Remdesivir - Continue dexamethasone - Nebulizers as needed - cont IV Rocephin and Azithromycin - f/u respiratory panel 2. DM Type 2 - Novolog SSI - Blood glucose with all meals 3. Hypothyroid - Continue medications - Goiter noted on CT, follow with PCP VTE prophylaxis: Lovenox Dispo: 1-2 days
[2020-04-15] MEDS: REMDESIVIR 100 MG in Sodium Chloride 0.9% 100 ML IV SCH (15:25)
[2020-04-15] MEDS: Enoxaparin 40 MG/0.4 ML Syringe SUBCUT SCH (15:26)
[2020-04-15] MEDS ORDERED: Nystatin Topical Powder 15 GM Bottle TOP PRN (21:28)
[2020-04-16 06:44] LABS: BLOOD UREA NITROGEN,BUN 17 mg/dL (7.0-18.0); CARBON DIOXIDE,CO2 26.2 mmol/L (21.0-32.0); CHLORIDE,CL 108 mmol/L (98-107); GLUCOSE RANDOM 150 mg/dL (74-106); POTASSIUM,K 3.9 mmol/L (3.5-5.1); SODIUM,NA 142 mmol/L (136-145)
[2020-04-16] MEDS: Insulin Aspart 100 Units/ML 3 ML Pen SUBCUT SCH ×3 (06:59→18:43)
[2020-04-16] MEDS: THYROID PORK 90 MG PO SCH (07:00)
[2020-04-16] MEDS: THYROID PORK 30 MG PO SCH (07:04)
[2020-04-16] MEDS: Azithromycin 500 MG in Sodium Chloride 0.9% 250 ML IV SCH (09:47)
[2020-04-16] MEDS: Dexamethasone 4 MG Tab PO SCH (09:50)
[2020-04-16] MEDS: cefTRIAXone 1 GM in Premix Bag 1 BAG IV SCH (12:57)
--- NOTE | 2020-04-16 13:33 | PCM.PN ---
- General Info Date of Service: 04/16/20 - Review of Systems Systems Review Comment:: feeling better. - Patient Data Vitals - Most Recent: Last Vital Signs Temp 36.2 C 04/16/20 13:00 Pulse 55 L 04/16/20 13:00 Resp 16 04/16/20 13:00 BP 107/53 L 04/16/20 13:00 Pulse Ox 93 L 04/16/20 13:00 Weight - Most Recent: 89.811 kg I&O - Last 24 Hours: Intake & Output 04/15/20 04/16/20 04/16/20 22:59 06:59 14:59 Intake Total 720 912 Output Total 900 500 Balance -180 412 Lab Results Last 24 Hours: Laboratory Results - last 24 hr 04/15/20 04/16/20 04/16/20 Range/Units 18:02 06:00 06:00 WBC 6.52 (4.0-11.0) K/uL RBC 4.87 (4.30-5.90) M/uL Hgb 13.9 (12.0-16.0) g/dL Hct 42.5 (36.0-46.0) % MCV 87.3 (80.0-98.0) fL MCH 28.5 (27.0-32.0) pg MCHC 32.7 (31.0-37.0) g/dL RDW Std Deviation 45.9 (28.0-62.0) fl RDW Coeff of César 14 (11.0-15.0) % Plt Count 228 (150-400) K/uL MPV 10.00 (7.40-12.00) fL Add Manual Diff YES Neutrophils % (Manual) 81 H (48.0-80.0) % Band Neutrophils % 2 % Lymphocytes % (Manual) 11 L (16.0-40.0) % Monocytes % (Manual) 6 (0.0-15.0) % Nucleated RBC % 0.0 /100WBC Absolute Seg Neuts 5.3 (1.4-5.7) Band Neutrophils # 0.1 Lymphocytes # (Manual) 0.7 (0.6-2.4) Monocytes # (Manual) 0.4 (0.0-0.8) Nucleated RBCs # 0 K/uL Sodium 142 (136-145) mmol/L Potassium 3.9 (3.5-5.1) mmol/L Chloride 108 H (98-107) mmol/L Carbon Dioxide 26.2 (21.0-32.0) mmol/L BUN 17 (7.0-18.0) mg/dL Creatinine 0.7 (0.6-1.0) mg/dL Est Cr Clr Drug Dosing 69.79 mL/min Estimated GFR (MDRD) > 60.0 ml/min Glucose 150 H (74-106) mg/dL POC Glucose 178 H (60-110) mg/dL Calcium 8.4 L (8.5-10.1) mg/dL Total Bilirubin 0.5 (0.2-1.0) mg/dL AST 31 (15-37) IU/L ALT 49 (14-63) IU/L Alkaline Phosphatase 58 (46-116) U/L Total Protein 6.3 L (6.4-8.2) g/dL Albumin 2.6 L (3.4-5.0) g/dL Globulin 3.7 (2.6-4.0) g/dL Albumin/Globulin Ratio 0.7 L (0.9-1.6) 04/16/20 04/16/20 Range/Units 06:58 12:56 WBC (4.0-11.0) K/uL RBC (4.30-5.90) M/uL Hgb (12.0-16.0) g/dL Hct (36.0-46.0) % MCV (80.0-98.0) fL MCH (27.0-32.0) pg MCHC (31.0-37.0) g/dL RDW Std Deviation (28.0-62.0) fl RDW Coeff of César (11.0-15.0) % Plt Count (150-400) K/uL MPV (7.40-12.00) fL Add Manual Diff Neutrophils % (Manual) (48.0-80.0) % Band Neutrophils % % Lymphocytes % (Manual) (16.0-40.0) % Monocytes % (Manual) (0.0-15.0) % Nucleated RBC % /100WBC Absolute Seg Neuts (1.4-5.7) Band Neutrophils # Lymphocytes # (Manual) (0.6-2.4) Monocytes # (Manual) (0.0-0.8) Nucleated RBCs # K/uL Sodium (136-145) mmol/L Potassium (3.5-5.1) mmol/L Chloride (98-107) mmol/L Carbon Dioxide (21.0-32.0) mmol/L BUN (7.0-18.0) mg/dL Creatinine (0.6-1.0) mg/dL Est Cr Clr Drug Dosing mL/min Estimated GFR (MDRD) ml/min Glucose (74-106) mg/dL POC Glucose 123 H 135 H (60-110) mg/dL Calcium (8.5-10.1) mg/dL Total Bilirubin (0.2-1.0) mg/dL AST (15-37) IU/L ALT (14-63) IU/L Alkaline Phosphatase (46-116) U/L Total Protein (6.4-8.2) g/dL Albumin (3.4-5.0) g/dL Globulin (2.6-4.0) g/dL Albumin/Globulin Ratio (0.9-1.6) Med Orders - Current: Current Medications Acetaminophen (Tylenol) 650 mg PO Q4H PRN PRN Reason: Pain (Mild 1-3)/fever Last Admin: 04/13/20 18:52 Dose: 650 mg Documented by: Albuterol/Ipratropium (Combivent Respimat) 0 gm INH Q4H PRN PRN Reason: Dyspnea Last Admin: 04/15/20 05:15 Dose: 1 puff Documented by: Dexamethasone (Dexamethasone) 6 mg PO DAILY [facility] Last Admin: 04/16/20 09:50 Dose: 6 mg Documented by: Enoxaparin Sodium (Lovenox) 40 mg SUBCUT Q24H [facility] Last Admin: 04/15/20 15:26 Dose: 40 mg Documented by: Azithromycin 500 mg/ Sodium (Chloride) 250 mls @ 250 mls/hr IV DAILY [facility] Last Admin: 04/16/20 09:47 Dose: 250 mls/hr Documented by: Ceftriaxone Sodium/Dextrose 1 (gm/ Premix) 50 mls @ 100 mls/hr IV Q24H [facility] Last Admin: 04/16/20 12:57 Dose: 100 mls/hr Documented by: Lactated Ringer's (Ringers, Lactated) 500 mls @ 999 mls/hr IV .BOLUS [facility] Last Admin: 04/13/20 10:55 Dose: 999 mls/hr Documented by: Remdesivir 100 mg/ Sodium (Chloride) 100 mls @ 100 mls/hr IV Q24H [facility] Stop: 04/18/20 15:29 Last Admin: 04/15/20 15:25 Dose: 100 mls/hr Documented by: Insulin Aspart (Novolog) 0 unit SUBCUT TIDAC [facility]; Protocol Last Admin: 04/16/20 12:57 Dose: Not Given Documented by: Nystatin (Nystop) 0 gm TOP QID PRN PRN Reason: Itching Last Admin: 04/16/20 12:57 Dose: 1 applic Documented by: Ondansetron HCl (Zofran) 4 mg IVPUSH Q4H PRN PRN Reason: Nausea Last Admin: 04/14/20 08:10 Dose: 4 mg Documented by: Thyroid,Pork [[place] (Thyroid] 90 Mg) 1 each PO ACBREAKFAST [facility] Last Admin: 04/16/20 07:00 Dose: 1 each Documented by: Thyroid,Pork 30 Mg) 1 each PO ACBREAKFAST [facility] Last Admin: 04/16/20 07:04 Dose: 1 each Documented by: Promethazine HCl (Phenergan) 25 mg IM Q6H PRN PRN Reason: Nausea Sodium Chloride (Saline Flush) 2.5 ml FLUSH ASDIRECTED PRN PRN Reason: Keep Vein Open Discontinued Medications Albuterol/Ipratropium (Duoneb 3.0-0.5 Mg/3 Ml) 3 ml NEB Q4HRRT PRN PRN Reason: Shortness of Breath Diphenhydramine HCl (Benadryl) 25 mg IVPUSH ONETIME ONE Stop: 04/12/20 14:49 Last Admin: 04/12/20 14:53 Dose: 25 mg Documented by: Sodium Chloride (Normal Saline) 1,000 mls @ 999 mls/hr IV STAT ONE Stop: 04/12/20 11:46 Last Admin: 04/12/20 10:55 Dose: 999 mls/hr Documented by: Ceftriaxone Sodium/Dextrose 1 (gm/ Premix) 50 mls @ 100 mls/hr IV ONETIME ONE Stop: 04/12/20 14:09 Last Admin: 04/12/20 13:57 Dose: 100 mls/hr Documented by: Azithromycin 500 mg/ Sodium (Chloride) 250 mls @ 250 mls/hr IV ONETIME [facility] Last Admin: 04/12/20 14:20 Dose: 250 mls/hr Documented by: Sodium Chloride (Normal Saline) 1,000 mls @ 100 mls/hr IV Q10H [facility] Last Admin: 04/15/20 17:40 Dose: Not Given Documented by: Remdesivir 200 mg/ Sodium (Chloride) 250 mls @ 125 mls/hr IV ONETIME [facility] Stop: 04/14/20 15:30 Remdesivir 100 mg/ Sodium (Chloride) 100 mls @ 100 mls/hr IV Q24H [facility] Stop: 04/18/20 14:30 Remdesivir 100 mg/ Sodium (Chloride) 100 mls @ 100 mls/hr IV Q24H [facility] Stop: 04/18/20 15:30 Last Admin: 04/14/20 19:52 Dose: Not Given Documented by: Remdesivir 200 mg/ Sodium (Chloride) 250 mls @ 125 mls/hr IV ONETIME ONE Stop: 04/14/20 16:29 Last Admin: 04/14/20 19:51 Dose: Not Given Documented by: Iopamidol (Isovue-370 (76%)) 75 ml IVPUSH ONETIME STA Stop: 04/12/20 14:08 Last Admin: 04/12/20 14:08 Dose: 75 ml Documented by: Metoclopramide HCl (Reglan) 10 mg IV ONETIME ONE Stop: 04/12/20 14:49 Last Admin: 04/12/20 14:56 Dose: 10 mg Documented by: Ondansetron HCl (Zofran) 4 mg IVPUSH ONETIME ONE Stop: 04/12/20 10:53 Last Admin: 04/12/20 10:57 Dose: 4 mg Documented by: Ondansetron HCl (Zofran) 4 mg IVPUSH ONETIME ONE Stop: 04/12/20 13:47 Last Admin: 04/12/20 13:56 Dose: 4 mg Documented by: Thyroid,Pork [[place] (Thyroid] 90 Mg) 1 each PO 04/13/20@1100 ONE Stop: 04/13/20 11:01 Last Admin: 04/13/20 11:03 Dose: 1 each Documented by: Thyroid,Pork 30 Mg) 1 each PO 04/13/20@1100 ONE Stop: 04/13/20 11:01 Last Admin: 04/13/20 11:04 Dose: 1 each Documented by: Potassium Chloride (Potassium Chloride) 40 meq PO ONETIME ONE Stop: 04/13/20 10:01 Last Admin: 04/13/20 11:01 Dose: 40 meq Documented by: Sodium Chloride (Saline Flush) 10 ml FLUSH ASDIRECTED PRN PRN Reason: Keep Vein Open Last Admin: 04/12/20 10:55 Dose: 10 ml Documented by: Sodium Chloride (Saline Flush) 2.5 ml FLUSH ASDIRECTED PRN PRN Reason: Keep Vein Open Last Admin: 04/12/20 10:55 Dose: 2.5 ml Documented by: - Exam General: Alert, Oriented Neck: Supple Lungs: Clear to Auscultation, Normal Respiratory Effort Cardiovascular: Regular Rate, Regular Rhythm GI/Abdominal Exam: Soft, Non-Tender, No Distention Extremities: Non-Tender, No Pedal Edema Skin: Warm, Dry, Intact Neurological: No New Focal Deficit Sepsis Event Note - Evaluation Sepsis Screening Result: No Definite Risk - Focused Exam Vital Signs: Vital Signs Temp Pulse Resp BP Pulse Ox 04/16/20 13:00 36.2 C 55 L 16 107/53 L 93 L 04/16/20 09:52 36.6 C 69 16 134/51 L 94 L 04/16/20 04:11 35.9 C L 56 L 16 107/57 L 98 - Problem List Review Problem List Initiated/Reviewed/Updated: Yes - My Orders Last 24 Hours: My Active Orders 04/15/20 14:24 Discontinue Telemetry Monitoring [Cardiac Monitoring Discontinue] [RC] Click to Edit 04/15/20 14:30 Remdesivir (Eua) [Remdesivir (EUA)] 100 mg Sodium Chloride 0.9% [Normal Saline] 100 ml IV Q24H 04/17/20 05:11 CBC WITH AUTO DIFF [HEME] AM COMPREHENSIVE METABOLIC PN,CMP [CHEM] AM 04/18/20 05:11 CBC WITH AUTO DIFF [HEME] AM COMPREHENSIVE METABOLIC PN,CMP [CHEM] AM - Plan Plan:: This 59 year old female admitted with acute respiratory failure with hypoxia and CAP 1. Acute respiratory failure with hypoxia and COVID - Weened off NC this morning. - Continue Remdesivir - Continue dexamethasone - cont IV Rocephin and Azithromycin 2. DM Type 2 - Novolog SSI - Blood glucose with all meals 3. Hypothyroid - Continue medications - Goiter noted on CT, follow with PCP VTE prophylaxis: Lovenox If continues to improve anticipate discharge home tomorrow
[2020-04-16] MEDS: REMDESIVIR 100 MG in Sodium Chloride 0.9% 100 ML IV SCH (16:02)
[2020-04-16] MEDS: Enoxaparin 40 MG/0.4 ML Syringe SUBCUT SCH (16:02)
[2020-04-17 06:42] LABS: BLOOD UREA NITROGEN,BUN 19 mg/dL (7.0-18.0); CARBON DIOXIDE,CO2 27.6 mmol/L (21.0-32.0); CHLORIDE,CL 108 mmol/L (98-107); GLUCOSE RANDOM 158 mg/dL (74-106); POTASSIUM,K 3.9 mmol/L (3.5-5.1); SODIUM,NA 143 mmol/L (136-145)
[2020-04-17] MEDS: Insulin Aspart 100 Units/ML 3 ML Pen SUBCUT SCH ×2 (06:43→11:57)
[2020-04-17] MEDS: THYROID PORK 90 MG PO SCH (06:44)
[2020-04-17] MEDS: THYROID PORK 30 MG PO SCH (06:45)
[2020-04-17] MEDS: Azithromycin 500 MG in Sodium Chloride 0.9% 250 ML IV SCH (08:35)
[2020-04-17] MEDS: Dexamethasone 4 MG Tab PO SCH (08:39)
[2020-04-17 08:47] VITALS: BP 122/56; PULSE 62
[2020-04-17] MEDS: cefTRIAXone 1 GM in Premix Bag 1 BAG IV SCH (11:39)
--- NOTE | 2020-04-17 12:20 | PCM.DCSUM1 ---
Discharge Summary - Discharge Data Discharge Date: 04/17/20 Discharge Disposition: Home, Self-Care 01 Condition: Good - Referral to Home Health Primary Care Physician: Janine Cason NP - Patient Summary/Data Hospital Course: 59 year old female with pmh of breast ca in remission, obesity, hypothyroidism, and DM Type 2 presented to the ED with complaints of SOB, fever and N/V for 9 days, she reports since last Friday she has not been feeling well. 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 In the ED she was noted to be hypoxic, sats 85% on RA on arrival. No leukocytosis, platelets 136,000. No GARTH. Mild transaminitis noted. CXR showed nodularity to R lung base, CT angio revealed bilateral densities with viral pneumonia appearance. She was given Rocephin and Azithromycin in the ED and admitted for acute respiratory failure with hypoxia. Her COVID test in hospital lab was negative but state lab test came back positive. She was started on Dexamethasone and Remdesivir. She did have improvement in her symptoms and was weaned off supplemental oxygen. Today she is requesting discharge. She is to follow up with [facility]. - Discharge Plan Prescriptions/Med Rec: dexAMETHasone [Dexamethasone] 6 mg PO DAILY #5 tab Ondansetron [Zofran Odt] 8 mg PO Q6H PRN #14 tab.rapdis PRN Reason: Nausea Home Medications: Home Meds atorvaSTATin Calcium [Atorvastatin Calcium] 40 mg PO BEDTIME 05/03/15 [History] Empagliflozin [Jardiance] 25 mg PO BEDTIME 04/12/20 [History] Ondansetron [Zofran] 4 mg PO Q4H 04/12/20 [History] Thyroid,Pork [[place] Thyroid] 90 mg PO ACBREAKFAST 04/12/20 [History] Thyroid,Pork [SENIOR SYSTEMS ANALYST Thyroid] 30 mg PO ACBREAKFAST 04/12/20 [History] Ondansetron [Zofran Odt] 8 mg PO Q6H PRN #14 tab.rapdis 04/17/20 [Rx] dexAMETHasone [Dexamethasone] 6 mg PO DAILY #5 tab 04/17/20 [Rx] Patient Handouts: COVID-19: How to Protect Yourself and Others - CDC, Infection Prevention in the Home, Community-Acquired Pneumonia, Adult Referrals: Janine Cason, SENIOR SYSTEMS ANALYST [Primary Care Provider] - 05/08/20 1:30 pm (Please arrive 15 minutes early with your identification, insurance cards and your own facemask.) - Discharge Summary/Plan Comment DC Time >30 min.: No - Patient Data Vitals - Most Recent: Last Vital Signs Temp 36.4 C 04/17/20 08:41 Pulse 62 04/17/20 08:41 Resp 16 04/17/20 08:41 BP 122/56 L 04/17/20 08:41 Pulse Ox 95 04/17/20 08:41 Weight - Most Recent: 89.811 kg I&O - Last 24 hours: Intake & Output 04/16/20 04/17/20 04/17/20 22:59 06:59 14:59 Intake Total 840 400 Output Total 900 2200 Balance -60 -1800 Lab Results - Last 24 hrs: Laboratory Results - last 24 hr 04/16/20 04/16/20 04/17/20 Range/Units 12:56 17:06 06:05 WBC 7.12 (4.0-11.0) K/uL RBC 4.89 (4.30-5.90) M/uL Hgb 13.7 (12.0-16.0) g/dL Hct 43.1 (36.0-46.0) % MCV 88.1 (80.0-98.0) fL MCH 28.0 (27.0-32.0) pg MCHC 31.8 (31.0-37.0) g/dL RDW Std Deviation 46.0 (28.0-62.0) fl RDW Coeff of César 14 (11.0-15.0) % Plt Count 240 (150-400) K/uL MPV 9.90 (7.40-12.00) fL Neut % (Auto) 66.7 (48.0-80.0) % Lymph % (Auto) 18.0 (16.0-40.0) % [place] % (Auto) 14.9 (0.0-15.0) % Eos % (Auto) 0.1 (0.0-7.0) % Baso % (Auto) 0.3 (0.0-1.5) % Neut # (Auto) 4.8 (1.4-5.7) K/uL Lymph # (Auto) 1.3 (0.6-2.4) K/uL [place] # (Auto) 1.1 H (0.0-0.8) K/uL Eos # (Auto) 0.0 (0.0-0.7) K/uL Baso # (Auto) 0.0 (0.0-0.1) K/uL Nucleated RBC % 0.0 /100WBC Nucleated RBCs # 0 K/uL Sodium (136-145) mmol/L Potassium (3.5-5.1) mmol/L Chloride (98-107) mmol/L Carbon Dioxide (21.0-32.0) mmol/L BUN (7.0-18.0) mg/dL Creatinine (0.6-1.0) mg/dL Est Cr Clr Drug Dosing mL/min Estimated GFR (MDRD) ml/min Glucose (74-106) mg/dL POC Glucose 135 H 149 H (60-110) mg/dL Calcium (8.5-10.1) mg/dL Total Bilirubin (0.2-1.0) mg/dL AST (15-37) IU/L ALT (14-63) IU/L Alkaline Phosphatase (46-116) U/L Total Protein (6.4-8.2) g/dL Albumin (3.4-5.0) g/dL Globulin (2.6-4.0) g/dL Albumin/Globulin Ratio (0.9-1.6) 04/17/20 04/17/20 04/17/20 Range/Units 06:05 06:42 11:46 WBC (4.0-11.0) K/uL RBC (4.30-5.90) M/uL Hgb (12.0-16.0) g/dL Hct (36.0-46.0) % MCV (80.0-98.0) fL MCH (27.0-32.0) pg MCHC (31.0-37.0) g/dL RDW Std Deviation (28.0-62.0) fl RDW Coeff of César (11.0-15.0) % Plt Count (150-400) K/uL MPV (7.40-12.00) fL Neut % (Auto) (48.0-80.0) % Lymph % (Auto) (16.0-40.0) % [place] % (Auto) (0.0-15.0) % Eos % (Auto) (0.0-7.0) % Baso % (Auto) (0.0-1.5) % Neut # (Auto) (1.4-5.7) K/uL Lymph # (Auto) (0.6-2.4) K/uL [place] # (Auto) (0.0-0.8) K/uL Eos # (Auto) (0.0-0.7) K/uL Baso # (Auto) (0.0-0.1) K/uL Nucleated RBC % /100WBC Nucleated RBCs # K/uL Sodium 143 (136-145) mmol/L Potassium 3.9 (3.5-5.1) mmol/L Chloride 108 H (98-107) mmol/L Carbon Dioxide 27.6 (21.0-32.0) mmol/L BUN 19 H (7.0-18.0) mg/dL Creatinine 0.8 (0.6-1.0) mg/dL Est Cr Clr Drug Dosing 61.07 mL/min Estimated GFR (MDRD) > 60.0 ml/min Glucose 158 H (74-106) mg/dL POC Glucose 138 H 165 H (60-110) mg/dL Calcium 8.5 (8.5-10.1) mg/dL Total Bilirubin 0.5 (0.2-1.0) mg/dL AST 38 H (15-37) IU/L ALT 62 (14-63) IU/L Alkaline Phosphatase 62 (46-116) U/L Total Protein 6.5 (6.4-8.2) g/dL Albumin 2.7 L (3.4-5.0) g/dL Globulin 3.8 (2.6-4.0) g/dL Albumin/Globulin Ratio 0.7 L (0.9-1.6) Med Orders - Current: Current Medications Acetaminophen (Tylenol) 650 mg PO Q4H PRN PRN Reason: Pain (Mild 1-3)/fever Last Admin: 04/13/20 18:52 Dose: 650 mg Documented by: Albuterol/Ipratropium (Combivent Respimat) 0 gm INH Q4H PRN PRN Reason: Dyspnea Last Admin: 04/15/20 05:15 Dose: 1 puff Documented by: Dexamethasone (Dexamethasone) 6 mg PO DAILY [facility] Last Admin: 04/17/20 08:39 Dose: 6 mg Documented by: Enoxaparin Sodium (Lovenox) 40 mg SUBCUT Q24H [facility] Last Admin: 04/16/20 16:02 Dose: 40 mg Documented by: Azithromycin 500 mg/ Sodium (Chloride) 250 mls @ 250 mls/hr IV DAILY [facility] Last Admin: 04/17/20 08:35 Dose: 250 mls/hr Documented by: Ceftriaxone Sodium/Dextrose 1 (gm/ Premix) 50 mls @ 100 mls/hr IV Q24H [facility] Last Admin: 04/17/20 11:39 Dose: 100 mls/hr Documented by: Lactated Ringer's (Ringers, Lactated) 500 mls @ 999 mls/hr IV .BOLUS [facility] Last Admin: 04/13/20 10:55 Dose: 999 mls/hr Documented by: Remdesivir 100 mg/ Sodium (Chloride) 100 mls @ 100 mls/hr IV Q24H [facility] Stop: 04/18/20 15:29 Last Admin: 04/16/20 16:02 Dose: 100 mls/hr Documented by: Insulin Aspart (Novolog) 0 unit SUBCUT TIDAC [facility]; Protocol Last Admin: 04/17/20 11:57 Dose: 1 unit Documented by: Nystatin (Nystop) 0 gm TOP QID PRN PRN Reason: Itching Last Admin: 04/16/20 12:57 Dose: 1 applic Documented by: Ondansetron HCl (Zofran) 4 mg IVPUSH Q4H PRN PRN Reason: Nausea Last Admin: 04/14/20 08:10 Dose: 4 mg Documented by: Thyroid,Pork [[place] (Thyroid] 90 Mg) 1 each PO ACBREAKFAST [facility] Last Admin: 04/17/20 06:44 Dose: 1 each Documented by: Thyroid,Pork 30 Mg) 1 each PO ACBREAKFAST [facility] Last Admin: 04/17/20 06:45 Dose: 1 each Documented by: Promethazine HCl (Phenergan) 25 mg IM Q6H PRN PRN Reason: Nausea Sodium Chloride (Saline Flush) 2.5 ml FLUSH ASDIRECTED PRN PRN Reason: Keep Vein Open Discontinued Medications Albuterol/Ipratropium (Duoneb 3.0-0.5 Mg/3 Ml) 3 ml NEB Q4HRRT PRN PRN Reason: Shortness of Breath Diphenhydramine HCl (Benadryl) 25 mg IVPUSH ONETIME ONE Stop: 04/12/20 14:49 Last Admin: 04/12/20 14:53 Dose: 25 mg Documented by: Sodium Chloride (Normal Saline) 1,000 mls @ 999 mls/hr IV STAT ONE Stop: 04/12/20 11:46 Last Admin: 04/12/20 10:55 Dose: 999 mls/hr Documented by: Ceftriaxone Sodium/Dextrose 1 (gm/ Premix) 50 mls @ 100 mls/hr IV ONETIME ONE Stop: 04/12/20 14:09 Last Admin: 04/12/20 13:57 Dose: 100 mls/hr Documented by: Azithromycin 500 mg/ Sodium (Chloride) 250 mls @ 250 mls/hr IV ONETIME [facility] Last Admin: 04/12/20 14:20 Dose: 250 mls/hr Documented by: Sodium Chloride (Normal Saline) 1,000 mls @ 100 mls/hr IV Q10H [facility] Last Admin: 04/15/20 17:40 Dose: Not Given Documented by: Remdesivir 200 mg/ Sodium (Chloride) 250 mls @ 125 mls/hr IV ONETIME [facility] Stop: 04/14/20 15:30 Remdesivir 100 mg/ Sodium (Chloride) 100 mls @ 100 mls/hr IV Q24H [facility] Stop: 04/18/20 14:30 Remdesivir 100 mg/ Sodium (Chloride) 100 mls @ 100 mls/hr IV Q24H [facility] Stop: 04/18/20 15:30 Last Admin: 04/14/20 19:52 Dose: Not Given Documented by: Remdesivir 200 mg/ Sodium (Chloride) 250 mls @ 125 mls/hr IV ONETIME ONE Stop: 04/14/20 16:29 Last Admin: 04/14/20 19:51 Dose: Not Given Documented by: Iopamidol (Isovue-370 (76%)) 75 ml IVPUSH ONETIME STA Stop: 04/12/20 14:08 Last Admin: 04/12/20 14:08 Dose: 75 ml Documented by: Metoclopramide HCl (Reglan) 10 mg IV ONETIME ONE Stop: 04/12/20 14:49 Last Admin: 04/12/20 14:56 Dose: 10 mg Documented by: Ondansetron HCl (Zofran) 4 mg IVPUSH ONETIME ONE Stop: 04/12/20 10:53 Last Admin: 04/12/20 10:57 Dose: 4 mg Documented by: Ondansetron HCl (Zofran) 4 mg IVPUSH ONETIME ONE Stop: 04/12/20 13:47 Last Admin: 04/12/20 13:56 Dose: 4 mg Documented by: Thyroid,Pork [[place] (Thyroid] 90 Mg) 1 each PO 04/13/20@1100 ONE Stop: 04/13/20 11:01 Last Admin: 04/13/20 11:03 Dose: 1 each Documented by: Thyroid,Pork 30 Mg) 1 each PO 04/13/20@1100 ONE Stop: 04/13/20 11:01 Last Admin: 04/13/20 11:04 Dose: 1 each Documented by: Potassium Chloride (Potassium Chloride) 40 meq PO ONETIME ONE Stop: 04/13/20 10:01 Last Admin: 04/13/20 11:01 Dose: 40 meq Documented by: Sodium Chloride (Saline Flush) 10 ml FLUSH ASDIRECTED PRN PRN Reason: Keep Vein Open Last Admin: 04/12/20 10:55 Dose: 10 ml Documented by: Sodium Chloride (Saline Flush) 2.5 ml FLUSH ASDIRECTED PRN PRN Reason: Keep Vein Open Last Admin: 04/12/20 10:55 Dose: 2.5 ml Documented by:
[2020-04-17] MEDS: REMDESIVIR 100 MG in Sodium Chloride 0.9% 100 ML IV SCH (15:42)
[2020-04-17] MEDS: Enoxaparin 40 MG/0.4 ML Syringe SUBCUT SCH (15:42)
== END 2020-04-17 13:15 | disposition home or self-care (01) | DRG 177 ==
LOC: MW.ED 09:57 → MW.MS 13:54 → UNDOADMOB 14:36 → OBSVTOIN 04-14 13:25 → MW.MS 04-14 16:00
PROVIDERS: ADMIT Student in an Organized Health Care Education/Training Program; ATTEND Student in an Organized Health Care Education/Training Program
PROC: XW033E5 Introduction of Remdesivir Anti-infective into Peripheral Vein, Percutaneous Approach, New Technology Group 5 (ICD-10-PCS; principal; 2020-04-14)
PROC: XW033E5 Introduction of Remdesivir Anti-infective into Peripheral Vein, Percutaneous Approach, New Technology Group 5 (ICD-10-PCS; 2020-04-15)
PROC: XW033E5 Introduction of Remdesivir Anti-infective into Peripheral Vein, Percutaneous Approach, New Technology Group 5 (ICD-10-PCS; 2020-04-16)
DX: U07.1 COVID-19 (principal); J18.9 Pneumonia, unspecified organism; J96.01 Acute respiratory failure with hypoxia; E66.9 Obesity, unspecified; E03.9 Hypothyroidism, unspecified; E11.9 Type 2 diabetes mellitus without complications; I48.91 Unspecified atrial fibrillation; M19.041 Primary osteoarthritis, right hand; M19.042 Primary osteoarthritis, left hand; R74.8 Abnormal levels of other serum enzymes; H91.93 Unspecified hearing loss, bilateral; Z99.81 Dependence on supplemental oxygen; Z79.899 Other long term (current) drug therapy; Z88.5 Allergy status to narcotic agent; Z87.442 Personal history of urinary calculi; Z79.890 Hormone replacement therapy; Z85.3 Personal history of malignant neoplasm of breast; Z68.35 Body mass index [BMI] 35.0-35.9, adult
CPT/HCPCS: 36415; 71045; 71045-26; 71275; 71275-26; 74176; 74176-26; 80048; 80053; 81001; 82962; 83690; 83735; 84100; 84484; 85025; 87486; 87581; 87632; 87798; 87804; 93005; 96361; 96365; 96366; 96367; 96372; 96375; 96376; 99219; 99225; 99231; 99232; 99238; 99284; 99285-25; A9270-GY; G0378; J0456; J0696; J1200; J1650; J1815-GY; J2405; J2765; J7030; J7050; J7120; J8540; Q9967; U0002

== ENCOUNTER 2022-10-28 14:37 | Inpatient (IN) | payer BC ==
[2022-10-28] MEDS ORDERED: Acetaminophen 500 MG Tab PO ONE (15:48)
[2022-10-28] MEDS ORDERED: Sodium Chloride 0.9% 1,000 ML IV ONE ×2 (15:48→15:52)
[2022-10-28] MEDS ORDERED: Ondansetron 4 MG/2 ML SDV IVPUSH ONE (15:48)
[2022-10-28] MEDS ORDERED: Piperacillin/Tazobactam 4.5 GM in Sodium Chloride 0.9% 100 ML IV ONE (15:48)
[2022-10-28] MEDS ORDERED: Sodium Chloride 0.9% 2.5 ML Syringe FLUSH PRN (15:48)
[2022-10-28] MEDS ORDERED: Sodium Chloride 0.9% 10 ML Syringe FLUSH PRN (15:48)
[2022-10-28] MEDS ORDERED: VANCOmycin 1.5 GM/300 ML 1.5 GM in Premix Bag 1 BAG IV ONE (16:20)
[2022-10-28 16:22] LABS: CORONAVIRUS COVID-19 NAA NEGATIVE (NEGATIVE); INFLUENZA A NAA NEGATIVE (NEGATIVE); INFLUENZA B NAA NEGATIVE (NEGATIVE)
[2022-10-28 16:50] LABS: CARBON DIOXIDE,CO2 23.4 mmol/L (21.0-32.0); POTASSIUM,K 4.1 mmol/L (3.5-5.1)
[2022-10-28] MEDS ORDERED: Iopamidol 755 MG/ML 500 ML Multipack Bottle IVPUSH ONE (17:43)
[2022-10-28] MEDS: Sodium Chloride 0.9% 500 ML IV SCH (18:59)
[2022-10-28] MEDS ORDERED: 50% Dextrose in Water 50 ML Syringe IVPUSH ONE (19:36)
[2022-10-28] MEDS ORDERED: Ondansetron 4 MG Tab.DIS PO PRN (19:36)
[2022-10-28] MEDS ORDERED: Docusate Sodium 100 MG Cap PO PRN (19:36)
[2022-10-28] MEDS ORDERED: Ondansetron 4 MG/2 ML SDV IVPUSH PRN (19:36)
[2022-10-28] MEDS ORDERED: Polyethylene Glycol 3350 Powder 17 GM Packet PO PRN (19:36)
[2022-10-28] MEDS ORDERED: atorvaSTATin 40 MG Tab PO SCH (21:00)
[2022-10-28] MEDS: Sodium Chloride 0.9% 1,000 ML IV SCH (21:02)
[2022-10-28] MEDS: Piperacillin/Tazobactam 3.375 GM in Sodium Chloride 0.9% 100 ML IV SCH (21:03)
[2022-10-28] MEDS: Enoxaparin 40 MG/0.4 ML Syringe SUBCUT SCH (21:04)
[2022-10-28] MEDS: Ibuprofen 600 MG Tab PO PRN (21:04)
[2022-10-29] MEDS: Piperacillin/Tazobactam 3.375 GM in Sodium Chloride 0.9% 100 ML IV SCH ×4 (03:42→21:05)
[2022-10-29] MEDS: Sodium Chloride 0.9% 1,000 ML IV SCH (05:29)
[2022-10-29] MEDS: Insulin Aspart 100 Units/ML 3 ML Pen SUBCUT SCH ×3 (06:32→17:14)
[2022-10-29 07:10] LABS: CARBON DIOXIDE,CO2 23.4 mmol/L (21.0-32.0); POTASSIUM,K 3.8 mmol/L (3.5-5.1)
[2022-10-29] MEDS ORDERED: Thyroid 60 MG Tab PO SCH (07:30)
[2022-10-29] MEDS ORDERED: THYROID PORK 90 MG PO SCH (07:30)
[2022-10-29] MEDS ORDERED: 50% Dextrose in Water 50 ML Syringe IVPUSH PRN (10:45)
[2022-10-29] MEDS: Ibuprofen 600 MG Tab PO PRN ×2 (15:31→21:15)
[2022-10-29] MEDS ORDERED: Sodium Chloride 0.9% 500 ML IV SCH (16:00)
[2022-10-29] MEDS: Benzonatate 100 MG Cap PO PRN (16:19)
[2022-10-29] MEDS: Ciprofloxacin/Dexamethasone 0.3-0.1% Otic Susp 7.5 ML Bottle EARLF SCH ×2 (16:24→20:56)
[2022-10-29] MEDS: Sodium Chloride 0.9% 500 ML IV SCH (16:24)
[2022-10-29] MEDS: Rosuvastatin 10 MG Tab PO SCH (20:51)
[2022-10-29] MEDS: Enoxaparin 40 MG/0.4 ML Syringe SUBCUT SCH (20:51)
[2022-10-29] MEDS: Melatonin 3 MG Tab PO PRN (21:15)
[2022-10-30] MEDS ORDERED: Sodium Chloride 0.9% 100 ML ONE ×4 (04:14→21:15)
[2022-10-30] MEDS: Piperacillin/Tazobactam 3.375 GM in Sodium Chloride 0.9% 100 ML IV SCH ×4 (04:27→21:26)
[2022-10-30 07:20] LABS: POTASSIUM,K 3.5 mmol/L (3.5-5.1)
[2022-10-30] MEDS: Insulin Aspart 100 Units/ML 3 ML Pen SUBCUT SCH ×3 (07:59→17:16)
[2022-10-30] MEDS ORDERED: Sodium Chloride 0.9% 250 ML ONE ×2 (08:02→21:16)
[2022-10-30] MEDS: Ibuprofen 600 MG Tab PO PRN ×2 (08:07→21:27)
[2022-10-30] MEDS: Benzonatate 100 MG Cap PO PRN ×2 (08:09→21:27)
[2022-10-30] MEDS: Ciprofloxacin/Dexamethasone 0.3-0.1% Otic Susp 7.5 ML Bottle EARLF SCH ×2 (08:18→21:28)
[2022-10-30] MEDS: Rosuvastatin 10 MG Tab PO SCH (21:26)
[2022-10-30] MEDS: Enoxaparin 40 MG/0.4 ML Syringe SUBCUT SCH (21:26)
[2022-10-30] MEDS: Melatonin 3 MG Tab PO PRN (21:27)
[2022-10-31] MEDS ORDERED: Sodium Chloride 0.9% 100 ML ONE ×3 (04:04→14:50)
[2022-10-31] MEDS: Piperacillin/Tazobactam 3.375 GM in Sodium Chloride 0.9% 100 ML IV SCH ×4 (04:14→21:57)
[2022-10-31 06:34] LABS: CARBON DIOXIDE,CO2 24.4 mmol/L (21.0-32.0); POTASSIUM,K 3.5 mmol/L (3.5-5.1)
[2022-10-31] MEDS: Insulin Aspart 100 Units/ML 3 ML Pen SUBCUT SCH ×3 (06:40→16:58)
[2022-10-31] MEDS ORDERED: Lactated Ringers 1,000 ML IV SCH ×2 (07:30)
[2022-10-31] MEDS ORDERED: Sodium Chloride 0.9% 250 ML ONE (07:52)
[2022-10-31] MEDS ORDERED: VANCOmycin 1.5 GM/300 ML 300 ML ONE (08:19)
[2022-10-31] MEDS: VANCOmycin 1.5 GM/300 ML 1.5 GM in Premix Bag 1 BAG IV SCH ×2 (08:37→20:07)
[2022-10-31] MEDS: Ciprofloxacin/Dexamethasone 0.3-0.1% Otic Susp 7.5 ML Bottle EARLF SCH ×2 (08:50→20:08)
[2022-10-31] MEDS ORDERED: LIOTHYRONINE 5 MCG PO SCH (12:15)
[2022-10-31] MEDS: Ibuprofen 600 MG Tab PO PRN (15:15)
[2022-10-31] MEDS: Enoxaparin 40 MG/0.4 ML Syringe SUBCUT SCH (20:07)
[2022-10-31] MEDS: Rosuvastatin 10 MG Tab PO SCH (20:08)
[2022-10-31] MEDS: Melatonin 3 MG Tab PO PRN (20:09)
[2022-10-31] MEDS: Benzonatate 100 MG Cap PO PRN (20:09)
[2022-10-31] MEDS ORDERED: Rosuvastatin 10 MG Tab PO SCH (21:00)
[2022-11-01] MEDS: Piperacillin/Tazobactam 3.375 GM in Sodium Chloride 0.9% 100 ML IV SCH ×2 (03:49→11:50)
[2022-11-01 06:49] LABS: CARBON DIOXIDE,CO2 26.3 mmol/L (21.0-32.0); POTASSIUM,K 3.5 mmol/L (3.5-5.1)
[2022-11-01] MEDS: Insulin Aspart 100 Units/ML 3 ML Pen SUBCUT SCH ×2 (08:22→11:50)
[2022-11-01] MEDS: Ciprofloxacin/Dexamethasone 0.3-0.1% Otic Susp 7.5 ML Bottle EARLF SCH (08:52)
[2022-11-01] MEDS: VANCOmycin 1.5 GM/300 ML 1.5 GM in Premix Bag 1 BAG IV SCH (09:00)
[2022-11-01 12:30] VITALS: BP 112/50; PULSE 64
== END 2022-11-01 13:30 | disposition home or self-care (01) | DRG 720 ==
LOC: MW.ED 14:37 → MW.MS 18:33
PROVIDERS: ADMIT Hospitalist; ATTEND Internal Medicine
DX: A41.9 Sepsis, unspecified organism (principal); J96.01 Acute respiratory failure with hypoxia; L03.211 Cellulitis of face; E87.1 Hypo-osmolality and hyponatremia; K11.20 Sialoadenitis, unspecified; E78.5 Hyperlipidemia, unspecified; Z20.822 Contact with and (suspected) exposure to COVID-19; E86.0 Dehydration; H60.92 Unspecified otitis externa, left ear; E03.9 Hypothyroidism, unspecified; I48.91 Unspecified atrial fibrillation; E11.65 Type 2 diabetes mellitus with hyperglycemia; Z79.899 Other long term (current) drug therapy; Z87.442 Personal history of urinary calculi; Z98.890 Other specified postprocedural states; Z88.5 Allergy status to narcotic agent
CPT/HCPCS: 0240U; 36415; 70487; 70487-26; 71045; 71045-26; 71046; 71046-26; 80048; 80053; 80202; 81001; 82803; 82947; 83036; 83605; 83690; 83880; 84439; 84443; 84484; 85025; 85027; 85610; 87040; 93005; 93010; 96361; 96365; 96367; 96375; 99223; 99232; 99239; 99284; 99285-25; A9270-GY; J1650; J2405; J2543; J3370; J3490; J7030; J7040; J7050; J7120; Q9967